=== PATIENT | female | born 1995 | race Caucasian/White ===

== ENCOUNTER 2017-06-29 21:47 | Emergency (ER) | payer SELFPAY ==
[2015-04-19 14:33] VITALS: Wt 59.0 kg
[~2017-06-29 21:47] MED LIST: ACE3 PO; ACE325 PO; ACET-2007 PO; ACET-2327 PO; AMO30L PO; AMOX-559 PO; ASP325 PO; AZI250 PO; Benzocaine 60 ML TP; DAR100 PO; DIPH-740 PO; DIPH-911 PO; DOCU240C67 PO; HYDR1TAB PO; HYOS0.3729 PO; IBU200 PO; IBUP-1618 PO; IBUP800T37 PO; KET10 PO; Lanolin TP; NIFE10CA38 PO; NORG1TAB5 PO; ONDA4TAB9 PO; ONDA4TAB97 PO; OXYC-865 PO; PNV1TABL77 PO; PRED20TA6 PO; PROM-110 PO; SERT-173 PO; TRAM-420 PO; TUCKS TP; [UNRECOGNIZED DRUG - CODE] PO
[2017-06-29 21:51] VITALS: BP 116/82
[2017-06-29] MEDS ORDERED: CYAN500T54 PO (21:58)
[2017-06-29] MEDS ORDERED: MULT1CAP59 PO (21:58)
[2017-06-29] MEDS ORDERED: IRON150C19 PO (21:58)
--- NOTE | 2017-06-29 21:58 | ER Report ---
History and Physical Time Seen By MD: 21:58 Hx. of Stated Complaint: PATIENT STATES SHE IS HAVING PAIN IN RIGHT FLANK, PATIENT ALSO STATES SHE FEELS LIKE SHE IS GETTING A URIARY TRACT INFECTION. PATIET STATES URGENCY OF URINATION, AND PATIENT STATES SHE HAS NAUSEA WITH THE PAIN. HPI/ROS CHIEF COMPLAINT: Right-sided flank pain HISTORY OF PRESENT ILLNESS: 22-year-old female with complaint of right-sided flank pain with dysuria for 24 hours. Similar to prior urinary tract infections. She denies fevers or chills she denies nausea vomiting or diarrhea. Patient reports allergy to amoxicillin which she gets hives. She denies any vaginal discharge or bleeding. She denies . REVIEW OF SYSTEMS: Respiratory: No cough, no dyspnea. Cardiovascular: No chest pain, no palpitations. Gastrointestinal: No vomiting, suprapubic and right-sided flank pain Musculoskeletal: No back pain. Allergies: Coded Allergies: amoxicillin (Verified Allergy, Severe, HEAD TO TOW HIVES, 06/29/17) Home Meds Active Scripts Phenazopyridine Hcl (PHENAZOPYRIDINE HCL) 200 Mg Tablet, 200 MG PO TID for PAIN , #6 TAB 0 Refills Prov:YOLANDA REY MD 06/29/17 Oxycodone Hcl/Acetaminophen (PERCOCET 5-325 MG TABLET) 1 Each Tablet, 1 EACH PO Q4H for PAIN, #6 TAB 0 Refills Prov:YOLANDA REY MD 06/29/17 Sulfamethoxazole/Trimet 800-160 Mg Tab (BACTRIM DS TABLET) 1 Each Tablet, 1 TAB PO Q12H, #6 MG 0 Refills TAKE ONE TABLET BY MOUTH EVERY TWELVE HOURS Prov:YOLANDA REY MD 06/29/17 Reported Medications Cyanocobalamin (Vitamin B-12) (B-12) 500 Mcg Tablet, 500 MCG PO QDAY 06/29/17 Iron Polysaccharides Complex (POLYSACCHARIDE IRON 150) 150 Mg Capsule, 150 MG PO QDAY, CAPSULE 06/29/17 Multivitamin (MULTIVITAMINS) 1 Each Capsule, 1 EACH PO QDAY, CAPSULE 06/29/17 Discontinued Reported Medications Amoxicillin/Pot Clav 875-125 Mg Tab (AUGMENTIN 875-125 TABLET) 1 Each Tablet, 1 TAB PO Q12H, TAB 03/03/16 Discontinued Scripts Prednisone (PREDNISONE) 20 Mg Tablet, 20 MG PO TID, #15 Prov:CATHERINE SOTO DO 03/03/16 Diphenhydramine Hcl (BENADRYL) 25 Mg Capsule, 25 MG PO Q6-8H, #20 CAPSULE TAKE 1 CAPSULE BY MOUTH EVERY 6 TO 8 HOURS Prov:CATHERINE SOTO DO 03/03/16 Past Medical/Surgical History Noncontributory Hx Smoking: No Smoking Status: Never Smoker Exposure to Second Hand Smoke?: Yes Hx Substance Use Disorder: No Hx Alcohol Use: No Constitutional Vital Sign - Last 24 Hours 06/29/17 21:51 Temp 98.3 Pulse 90 Resp 16 B/P (MAP) 116/82 Pulse Ox 94 O2 Delivery Room Air Physical Exam General Appearance: The patient is alert, has no immediate need for airway protection and no current signs of toxicity. Eyes: Pupils equal and round no injection. Respiratory: Chest is non tender, lungs are clear to auscultation. Cardiac: regular rate and rhythm Gastrointestinal: Suprapubic abdominal pain, right-sided CVA tenderness Musculoskeletal: Neck: Neck is supple and non tender. Extremities have full range of motion and are non tender. Skin: No rashes or lesions. Medical Decision Making Data Points Laboratory Hematology Test 06/29/17 21:53 Urine Color Yellow Urine Clarity Cloudy Urine pH 5.0 pH (4.8-9.5) Urine Specific [place] 1.020 Urine Protein 100 mg/dL (NEGATIVE) Urine Glucose (UA) Negative mg/dL (NEGATIVE) Urine Ketones Trace mg/dL (NEGATIVE) Urine Blood Moderate (NEGATIVE) Urine Nitrite Negative (NEGATIVE) Urine Bilirubin Negative (NEGATIVE) Urine Urobilinogen Negative mg/dL (0.2-1.9) Urine Leukocyte Esterase Large (NEGATIVE) Urine RBC 291 /HPF (0-2/HPF) Urine WBC 845 /HPF (0-5/HPF) Urine WBC Clumps Many /HPF Urine Squamous Epithelial Cells Many /LPF (</=FEW) Urine Bacteria Moderate /HPF (NONE-FEW) Urine Mucus Few /HPF (NONE-FEW) Urine HCG, Qualitative Negative (NEGATIVE) Chemistry Test 06/29/17 21:53 Urine Color Yellow Urine Clarity Cloudy Urine pH 5.0 pH (4.8-9.5) Urine Specific [place] 1.020 Urine Protein 100 mg/dL (NEGATIVE) Urine Glucose (UA) Negative mg/dL (NEGATIVE) Urine Ketones Trace mg/dL (NEGATIVE) Urine Blood Moderate (NEGATIVE) Urine Nitrite Negative (NEGATIVE) Urine Bilirubin Negative (NEGATIVE) Urine Urobilinogen Negative mg/dL (0.2-1.9) Urine Leukocyte Esterase Large (NEGATIVE) Urine RBC 291 /HPF (0-2/HPF) Urine WBC 845 /HPF (0-5/HPF) Urine WBC Clumps Many /HPF Urine Squamous Epithelial Cells Many /LPF (</=FEW) Urine Bacteria Moderate /HPF (NONE-FEW) Urine Mucus Few /HPF (NONE-FEW) Urine HCG, Qualitative Negative (NEGATIVE) Urinalysis Test 06/29/17 21:53 Urine Color Yellow Urine Clarity Cloudy Urine pH 5.0 pH (4.8-9.5) Urine Specific [place] 1.020 Urine Protein 100 mg/dL (NEGATIVE) Urine Glucose (UA) Negative mg/dL (NEGATIVE) Urine Ketones Trace mg/dL (NEGATIVE) Urine Blood Moderate (NEGATIVE) Urine Nitrite Negative (NEGATIVE) Urine Bilirubin Negative (NEGATIVE) Urine Urobilinogen Negative mg/dL (0.2-1.9) Urine Leukocyte Esterase Large (NEGATIVE) Urine RBC 291 /HPF (0-2/HPF) Urine WBC 845 /HPF (0-5/HPF) Urine WBC Clumps Many /HPF Urine Squamous Epithelial Cells Many /LPF (</=FEW) Urine Bacteria Moderate /HPF (NONE-FEW) Urine Mucus Few /HPF (NONE-FEW) Urine HCG, Qualitative Negative (NEGATIVE) ED Course/Re-evaluation ED Course 06/29/2017 10:18:24 pm printed test negative urinalysis positive for large leuks moderate blood and moderate bacteria. Plan at this time will be to give the patient oral Bactrim double strength, Pyridium we'll sent home with take home pack for Bactrim, Pyridium and Lortab. Decision to Disposition Date: Jun 29, 2017 Decision to Disposition Time: 22:18 Depart Departure Latest Vital Signs Vital Signs Date Time Temp Pulse Resp B/P (MAP) Pulse Ox O2 Delivery O2 Flow Rate FiO2 06/29/17 21:51 98.3 90 16 116/82 94 Room Air Impression: Primary Impression: Urinary tract infection Condition: Improved Disposition: HOME OR SELF-CARE New Scripts Phenazopyridine Hcl (PHENAZOPYRIDINE HCL) 200 Mg Tablet 200 MG PO TID for PAIN, #6 TAB 0 Refills Prov: YOLANDA REY MD 06/29/17 Oxycodone Hcl/Acetaminophen (PERCOCET 5-325 MG TABLET) 1 Each Tablet 1 EACH PO Q4H for PAIN, #6 TAB 0 Refills Prov: YOLANDA REY MD 06/29/17 Sulfamethoxazole/Trimet 800-160 Mg Tab (BACTRIM DS TABLET) 1 Each Tablet 1 TAB PO Q12H, #6 MG 0 Refills TAKE ONE TABLET BY MOUTH EVERY TWELVE HOURS Prov: YOLANDA REY MD 06/29/17 Patient Instructions: Urinary Tract Infection in Women (ED) Problem Qualifiers Primary Impression: Urinary tract infection Urinary tract infection type: acute cystitis Hematuria presence: without hematuria Qualified Codes: N30.00 - Acute cystitis without hematuria YOLANDA REY MD Jun 29, 2017 21:58
[2017-06-29] MEDS ORDERED: ACET/HYDROC 5/325MG TH ER ONLY 2 TAB/BOTTLE PO ONE (22:15)
[2017-06-29] MEDS ORDERED: TRIMETH/SULFA DS 160-800MG TAB PO ONE (22:15)
[2017-06-29] MEDS ORDERED: PHENAZOPYRIDINE 200 MG TAB TH 2 TAB/BOTTLE PO ONE (22:15)
[2017-06-29] MEDS ORDERED: TRIMETHOPRIM/SULFA 160-800 TH 2 TAB/BOTTLE PO ONE (22:15)
[2017-06-29] MEDS ORDERED: SULF-198 PO (22:21)
[2017-06-29] MEDS ORDERED: LOR5/325 PO (22:21)
[2017-06-29] MEDS ORDERED: OXYC-865 PO (22:23)
[2017-06-29] MEDS ORDERED: PHEN200T32 PO (22:24)
== END 2017-06-29 22:38 | disposition home or self-care (01) ==
LOC: ER 22:38
DX: N30.00 Acute cystitis without hematuria (principal)
CPT/HCPCS: 81001; 81025; 87088; 99283

== ENCOUNTER 2017-07-04 13:10 | Emergency (ER) | payer SELFPAY ==
[2015-04-19 14:33] VITALS: Wt 59.0 kg
[~2017-07-04 13:10] MED LIST changes: +CYAN500T54 PO; +IRON150C19 PO; +LOR5/325 PO; +MULT1CAP59 PO; +PHEN200T32 PO; +SULF-198 PO
--- NOTE | 2017-07-04 13:14 | ER Report ---
History and Physical Time Seen By MD: 13:14 HPI/ROS CHIEF COMPLAINT: persistant dysuria HISTORY OF PRESENT ILLNESS: Patient is a 22-year-old female who was seen approximate 5 days ago for urinary tract infection symptoms. Was treated for UTI states that symptoms are persisting. She denies any new symptoms. She denies fevers or chills. She denies any flank pain. She denies vaginal discharge or bleeding. REVIEW OF SYSTEMS: Constitutional: No fever, no chills. Eyes: No discharge. ENT: No sore throat. Cardiovascular: No chest pain, no palpitations. Respiratory: No cough, no shortness of breath. Gastrointestinal: suprapubic abdominal pain Genitourinary: No hematuria. Dysuria Musculoskeletal: No back pain. Skin: No rashes. Neurological: No headache. Allergies: Coded Allergies: amoxicillin (Verified Allergy, Severe, HEAD TO TOW HIVES, 06/29/17) Home Meds Active Scripts Doxycycline Hyclate (DOXYCYCLINE HYCLATE) 100 Mg Tablet, 100 MG PO BID for 14 Days, #28 TAB 0 Refills Prov:YOLANDA REY MD 07/04/17 Phenazopyridine Hcl (PHENAZOPYRIDINE HCL) 200 Mg Tablet, 200 MG PO TID for PAIN , #6 TAB 0 Refills Prov:YOLANDA REY MD 06/29/17 Oxycodone Hcl/Acetaminophen (PERCOCET 5-325 MG TABLET) 1 Each Tablet, 1 EACH PO Q4H for PAIN, #6 TAB 0 Refills Prov:YOLANDA REY MD 06/29/17 Sulfamethoxazole/Trimet 800-160 Mg Tab (BACTRIM DS TABLET) 1 Each Tablet, 1 TAB PO Q12H, #6 MG 0 Refills TAKE ONE TABLET BY MOUTH EVERY TWELVE HOURS Prov:YOLANDA REY MD 06/29/17 Reported Medications Cyanocobalamin (Vitamin B-12) (B-12) 500 Mcg Tablet, 500 MCG PO QDAY 06/29/17 Iron Polysaccharides Complex (POLYSACCHARIDE IRON 150) 150 Mg Capsule, 150 MG PO QDAY, CAPSULE 06/29/17 Multivitamin (MULTIVITAMINS) 1 Each Capsule, 1 EACH PO QDAY, CAPSULE 06/29/17 Discontinued Reported Medications Amoxicillin/Pot Clav 875-125 Mg Tab (AUGMENTIN 875-125 TABLET) 1 Each Tablet, 1 TAB PO Q12H, TAB 12/5/16 Discontinued Scripts Prednisone (PREDNISONE) 20 Mg Tablet, 20 MG PO TID, #15 Prov:CATHERINE SOTO DO 03/03/16 Diphenhydramine Hcl (BENADRYL) 25 Mg Capsule, 25 MG PO Q6-8H, #20 CAPSULE TAKE 1 CAPSULE BY MOUTH EVERY 6 TO 8 HOURS Prov:CATHERINE SOTO DO 03/03/16 Past Medical/Surgical History Past medical history significant for urinary tract infections Hx Smoking: No Smoking Status: Never Smoker Exposure to Second Hand Smoke?: Yes Hx Substance Use Disorder: No Hx Alcohol Use: No Constitutional Vital Sign - Last 24 Hours 07/04/17 07/04/17 07/04/17 07/04/17 13:24 13:25 13:26 13:55 Temp 98.6 Pulse 92 76 Resp 14 B/P (MAP) 120/78 (92) 120/78 Pulse Ox 94 93 96 O2 Delivery Room Air 07/04/17 14:59 B/P (MAP) 109/70 (83) Physical Exam General Appearance: The patient is alert, has no immediate need for airway protection and no signs of toxicity. Eyes: Pupils equal and round no pallor or injection. ENT, Mouth: Mucous membranes are moist. Respiratory: There are no retractions, lungs are clear to auscultation. Cardiovascular: Regular rate and rhythm. Gastrointestinal: Abdomen is soft and non tender, no masses, bowel sounds normal. Skin: Warm and dry, no rashes. Musculoskeletal: Neck is supple non tender. Extremities are nontender, nonswollen and have full range of motion. Medical Decision Making Data Points Result Diagram: 07/04/17 1345 07/04/17 1345 Laboratory Hematology Test 07/04/17 13:24 07/04/17 13:45 07/04/17 14:09 Urine Color Straw Urine Clarity Clear Urine pH 6.0 pH (4.8-9.5) Urine Specific [place] 1.003 Urine Protein Negative mg/dL (NEGATIVE) Urine Glucose (UA) Negative mg/dL (NEGATIVE) Urine Ketones Negative mg/dL (NEGATIVE) Urine Blood Negative (NEGATIVE) Urine Nitrite Negative (NEGATIVE) Urine Bilirubin Negative (NEGATIVE) Urine Urobilinogen Negative mg/dL (0.2-1.9) Urine Leukocyte Esterase Negative (NEGATIVE) Urine RBC <1 /HPF (0-2/HPF) Urine WBC 2 /HPF (0-5/HPF) Urine Squamous Epithelial Cells Few /LPF (NONE-FEW) Urine Bacteria Negative /HPF (NONE-FEW) Urine Mucus None /HPF (NONE-FEW) Urine HCG, Qualitative Negative (NEGATIVE) Red Blood Count 4.70 M/uL (4.17-5.56) Mean Corpuscular Volume 92.3 fL (80.0-96.0) Mean Corpuscular Hemoglobin 32.9 pg (26.0-33.0) Mean Corpuscular Hemoglobin Concent 35.7 g/dL (32.0-36.0) Red Cell Distribution Width 12.6 % (11.5-14.5) Mean Platelet Volume 7.6 fL (7.2-11.1) Neutrophils (%) (Auto) 70.7 % (39.4-72.5) Lymphocytes (%) (Auto) 23.2 % (17.6-49.6) Monocytes (%) (Auto) 5.2 % (4.1-12.4) Eosinophils (%) (Auto) 0.2 % (0.4-6.7) Basophils (%) (Auto) 0.7 % (0.3-1.4) Nucleated RBC Relative Count (auto) 0.0 /100WBC Neutrophils # (Auto) 5.6 K/uL (2.0-7.4) Lymphocytes # (Auto) 1.8 K/uL (1.3-3.6) Monocytes # (Auto) 0.4 K/uL (0.3-1.0) Eosinophils # (Auto) 0.0 K/uL (0.0-0.5) Basophils # (Auto) 0.1 K/uL (0.0-0.1) Nucleated RBC Absolute Count (auto) 0.00 K/uL Sodium Level 140 mmol/L (137-145) Potassium Level 3.8 mmol/L (3.5-5.0) Chloride Level 99 mmol/L (98-107) Carbon Dioxide Level 26 mmol/L (22-31) Blood Urea Nitrogen 8 mg/dl (7-18) Creatinine 1.00 mg/dl (0.52-1.04) Glomerular Filtration Rate Calc > 60.0 Random Glucose 88 mg/dl (75-110) Calcium Level 9.5 mg/dl (8.4-10.2) Chemistry Test 07/04/17 13:24 07/04/17 13:45 07/04/17 14:09 Urine Color Straw Urine Clarity Clear Urine pH 6.0 pH (4.8-9.5) Urine Specific [place] 1.003 Urine Protein Negative mg/dL (NEGATIVE) Urine Glucose (UA) Negative mg/dL (NEGATIVE) Urine Ketones Negative mg/dL (NEGATIVE) Urine Blood Negative (NEGATIVE) Urine Nitrite Negative (NEGATIVE) Urine Bilirubin Negative (NEGATIVE) Urine Urobilinogen Negative mg/dL (0.2-1.9) Urine Leukocyte Esterase Negative (NEGATIVE) Urine RBC <1 /HPF (0-2/HPF) Urine WBC 2 /HPF (0-5/HPF) Urine Squamous Epithelial Cells Few /LPF (NONE-FEW) Urine Bacteria Negative /HPF (NONE-FEW) Urine Mucus None /HPF (NONE-FEW) Urine HCG, Qualitative Negative (NEGATIVE) White Blood Count 7.9 k/uL (4.5-11.0) Red Blood Count 4.70 M/uL (4.17-5.56) Hemoglobin 15.5 g/dL (12.0-16.0) Hematocrit 43.4 % (34.0-47.0) Mean Corpuscular Volume 92.3 fL (80.0-96.0) Mean Corpuscular Hemoglobin 32.9 pg (26.0-33.0) Mean Corpuscular Hemoglobin Concent 35.7 g/dL (32.0-36.0) Red Cell Distribution Width 12.6 % (11.5-14.5) Platelet Count 221 K/uL (150-450) Mean Platelet Volume 7.6 fL (7.2-11.1) Neutrophils (%) (Auto) 70.7 % (39.4-72.5) Lymphocytes (%) (Auto) 23.2 % (17.6-49.6) Monocytes (%) (Auto) 5.2 % (4.1-12.4) Eosinophils (%) (Auto) 0.2 % (0.4-6.7) Basophils (%) (Auto) 0.7 % (0.3-1.4) Nucleated RBC Relative Count (auto) 0.0 /100WBC Neutrophils # (Auto) 5.6 K/uL (2.0-7.4) Lymphocytes # (Auto) 1.8 K/uL (1.3-3.6) Monocytes # (Auto) 0.4 K/uL (0.3-1.0) Eosinophils # (Auto) 0.0 K/uL (0.0-0.5) Basophils # (Auto) 0.1 K/uL (0.0-0.1) Nucleated RBC Absolute Count (auto) 0.00 K/uL Glomerular Filtration Rate Calc > 60.0 Calcium Level 9.5 mg/dl (8.4-10.2) Urinalysis Test 07/04/17 13:24 Urine Color Straw Urine Clarity Clear Urine pH 6.0 pH (4.8-9.5) Urine Specific [place] 1.003 Urine Protein Negative mg/dL (NEGATIVE) Urine Glucose (UA) Negative mg/dL (NEGATIVE) Urine Ketones Negative mg/dL (NEGATIVE) Urine Blood Negative (NEGATIVE) Urine Nitrite Negative (NEGATIVE) Urine Bilirubin Negative (NEGATIVE) Urine Urobilinogen Negative mg/dL (0.2-1.9) Urine Leukocyte Esterase Negative (NEGATIVE) Urine RBC <1 /HPF (0-2/HPF) Urine WBC 2 /HPF (0-5/HPF) Urine Squamous Epithelial Cells Few /LPF (NONE-FEW) Urine Bacteria Negative /HPF (NONE-FEW) Urine Mucus None /HPF (NONE-FEW) Urine HCG, Qualitative Negative (NEGATIVE) Microbiology Microbiology Date/Time Source Procedure Growth Status 07/04/17 13:24 Straight Cath Urine Urine Culture - Preliminary NO GROWTH AFTER 1 DAY, REINCUBATED Resulted ED Course/Re-evaluation ED Course 07/04/2017 2:11:54 pm bimanual exam suggestive of cervicitis. We'll give [address] the patient on doxycycline. We'll send swab for GC chlamydia culture. Decision to Disposition Date: Jul 04, 2017 Decision to Disposition Time: 15:00 Depart Departure Latest Vital Signs Vital Signs Date Time Temp Pulse Resp B/P (MAP) Pulse Ox O2 Delivery O2 Flow Rate FiO2 07/04/17 14:59 109/70 (83) 07/04/17 13:55 76 96 07/04/17 13:26 98.6 14 Room Air Impression: Primary Impression: Cervicitis Condition: Improved New Scripts Doxycycline Hyclate (DOXYCYCLINE HYCLATE) 100 Mg Tablet 100 MG PO BID for 14 Days, #28 TAB 0 Refills Prov: YOLANDA REY MD 07/04/17 Patient Instructions: Cervicitis (ED) YOLANDA REY MD Jul 04, 2017 13:14
[2017-07-04] MEDS ORDERED: KETOROLAC 15 MG/ML VIAL IVP ONE (13:50)
[2017-07-04 13:58] LABS: PLATELET COUNT, AUTOMATED 221 K/uL (150-450)
[2017-07-04] MEDS ORDERED: DOXY-179 PO (14:15)
[2017-07-04] MEDS ORDERED: cefTRIAXone 250 MG VIAL IVP ONE (14:20)
[2017-07-04 14:59] VITALS: BP 109/70
== END 2017-07-04 15:07 | disposition home or self-care (01) ==
LOC: ER 13:20
DX: N72 Inflammatory disease of cervix uteri (principal)
CPT/HCPCS: 81001; 81025; 85025; 87088; 87491; 87591; 96374; 96375; 99283; A4353; J0696; J1885; 82310; 82374; 82435; 82565; 82947; 84132; 84295; 84520

== ENCOUNTER 2017-09-26 16:38 | Emergency (ER) | payer MEDICAID ==
[2015-04-19 14:33] VITALS: Wt 63.0 kg
[~2017-09-26 16:38] MED LIST changes: +DOXY-179 PO
[2017-09-26] MEDS ORDERED: KETOROLAC 15 MG/ML VIAL IVP ONE (17:05)
--- NOTE | 2017-09-26 17:23 | ER Report ---
History and Physical Time Seen By MD: 16:46 Hx. of Stated Complaint: pelvic pain. feels like uterus is being pulled on HPI/ROS CHIEF COMPLAINT: pelvic pain HISTORY OF PRESENT ILLNESS: Pt here for evaluation of pelvic pain. Pt states pain has started for about one week. Pain is pulling feeling in her uterus with sharp pains on r side of her uterus which is worse with walking and movement. Pt has noticed a discharge. Pt has an iud and was concerned it could have moved. Pt was tested for stds earlier this month and was normal. pt does not believe she is . Pt w just finished bactrim for an lymph node in her neck. Pt does c/o of nausea. no vomiting. no chnage in bm. no dysuria REVIEW OF SYSTEMS: Constitutional: No fever, no chills. Eyes: No discharge. ENT: No sore throat. Cardiovascular: No chest pain, no palpitations. Respiratory: No cough, no shortness of breath. Gastrointestinal: + abdominal pain, no vomiting, + nausea Genitourinary: No hematuria. Musculoskeletal: No back pain. Skin: No rashes. Neurological: No headache. Allergies: Coded Allergies: amoxicillin (Verified Allergy, Severe, HEAD TO TOW HIVES, 09/26/17) Home Meds Active Scripts Tramadol Hcl (TRAMADOL HCL) 50 Mg Tablet, 50 MG PO Q6H Y for PAIN, #12 TAB 0 Refills Prov:NIRMAL SAAVEDRA DO 09/26/17 Doxycycline Hyclate (DOXYCYCLINE HYCLATE) 100 Mg Capsule, 100 MG PO BID for 14 Days, #28 CAPSULE Prov:NIRMAL SAAVEDRA DO 09/26/17 Discontinued Reported Medications Cyanocobalamin (Vitamin B-12) (B-12) 500 Mcg Tablet, 500 MCG PO QDAY 06/29/17 Iron Polysaccharides Complex (POLYSACCHARIDE IRON 150) 150 Mg Capsule, 150 MG PO QDAY, CAPSULE 06/29/17 Multivitamin (MULTIVITAMINS) 1 Each Capsule, 1 EACH PO QDAY, CAPSULE 06/29/17 Discontinued Scripts Sulfamethoxazole/Trimet 800-160 Mg Tab (BACTRIM DS TABLET) 1 Each Tablet, 1 TAB PO Q12H for 7 Days, #14 TAB 0 Refills Prov:HEIDY RAJPUT DO 09/15/17 Doxycycline Hyclate (DOXYCYCLINE HYCLATE) 100 Mg Tablet, 100 MG PO BID for 14 Days, #28 TAB 0 Refills Prov:YOLANDA REY MD 07/04/17 Phenazopyridine Hcl (PHENAZOPYRIDINE HCL) 200 Mg Tablet, 200 MG PO TID for PAIN , #6 TAB 0 Refills Prov:YOLANDA REY MD 06/29/17 Oxycodone Hcl/Acetaminophen (PERCOCET 5-325 MG TABLET) 1 Each Tablet, 1 EACH PO Q4H for PAIN, #6 TAB 0 Refills Prov:YOLANDA REY MD 06/29/17 Sulfamethoxazole/Trimet 800-160 Mg Tab (BACTRIM DS TABLET) 1 Each Tablet, 1 TAB PO Q12H, #6 MG 0 Refills TAKE ONE TABLET BY MOUTH EVERY TWELVE HOURS Prov:YOLANDA REY MD 06/29/17 Past Medical/Surgical History pmhx: kidney infection Pshx: gini Reviewed Nurses Notes: Yes Hx Smoking: No Smoking Status: Former Smoker (vapor) Exposure to Second Hand Smoke?: Yes Hx Substance Use Disorder: No Hx Alcohol Use: No Constitutional Vital Sign - Last 24 Hours 09/26/17 09/26/17 16:50 19:19 Temp 98.9 Pulse 96 85 Resp 14 16 B/P (MAP) 144/79 138/72 (94) Pulse Ox 99 92 O2 Delivery Room Air Room Air Physical Exam General Appearance: The patient is alert, has no immediate need for airway protection and no signs of toxicity. Eyes: Pupils equal and round no pallor or injection, EOMI ENT: no pharyngeal erythema or exudates, Mucous membranes are moist Respiratory: There are no retractions, lungs are clear to auscultation. Cardiovascular: Regular rate and rhythm. pulses are equal and symmetrical Gastrointestinal: Abdomen is soft mild superpubic tender, no masses, bowel sounds normal, no guarding, no rigidity or rebound Neurological: Cranial nerves II-XII grossly intact, no sensory or motor loss Pelvis: + yellow d/c; +CMT; no adnexal tenderness; iud string is in os Skin: Warm and dry, no rashes. Musculoskeletal: Neck is supple non tender, no vertebral tenderness Extremities are nontender, non swollen and have full range of motion. DIFFERENTIAL DIAGNOSIS: After history and physical exam differential diagnosis was considered for cervicitis, ovarian torsion, tubal , ovarian cyst, uti, appendicitis Medical Decision Making Data Points Result Diagram: 09/26/17 1728 09/26/17 1728 Laboratory Hematology Test 09/26/17 17:00 09/26/17 17:06 09/26/17 17:28 Urine Color Yellow Urine Clarity Clear Urine pH 5.0 pH (4.8-9.5) Urine Specific [place] 1.023 Urine Protein Negative mg/dL (NEGATIVE) Urine Glucose (UA) Negative mg/dL (NEGATIVE) Urine Ketones Negative mg/dL (NEGATIVE) Urine Blood Negative (NEGATIVE) Urine Nitrite Negative (NEGATIVE) Urine Bilirubin Negative (NEGATIVE) Urine Urobilinogen 2.0 mg/dL (0.2-1.9) Urine Leukocyte Esterase Negative (NEGATIVE) Urine RBC 1 /HPF (0-2/HPF) Urine WBC 4 /HPF (0-5/HPF) Urine Squamous Epithelial Cells None /LPF (</=FEW) Urine Bacteria Negative /HPF (NONE-FEW) Urine Mucus Few /HPF (NONE-FEW) Urine HCG, Qualitative Negative (NEGATIVE) Red Blood Count 4.43 M/uL (4.17-5.56) Mean Corpuscular Volume 93.9 fL (80.0-96.0) Mean Corpuscular Hemoglobin 33.3 pg (26.0-33.0) Mean Corpuscular Hemoglobin Concent 35.4 g/dL (32.0-36.0) Red Cell Distribution Width 12.7 % (11.5-14.5) Mean Platelet Volume 7.3 fL (7.2-11.1) Neutrophils (%) (Auto) 92.1 % (39.4-72.5) Lymphocytes (%) (Auto) 4.1 % (17.6-49.6) Monocytes (%) (Auto) 2.3 % (4.1-12.4) Eosinophils (%) (Auto) 0.6 % (0.4-6.7) Basophils (%) (Auto) 0.9 % (0.3-1.4) Nucleated RBC Relative Count (auto) 0.0 /100WBC Neutrophils # (Auto) 15.3 K/uL (2.0-7.4) Lymphocytes # (Auto) 0.7 K/uL (1.3-3.6) Monocytes # (Auto) 0.4 K/uL (0.3-1.0) Eosinophils # (Auto) 0.1 K/uL (0.0-0.5) Basophils # (Auto) 0.2 K/uL (0.0-0.1) Nucleated RBC Absolute Count (auto) 0.01 K/uL Peripheral Blood Smear Yes Y/N Sodium Level 141 mmol/L (137-145) Potassium Level 3.3 mmol/L (3.5-5.0) Chloride Level 101 mmol/L (98-107) Carbon Dioxide Level 27 mmol/L (22-31) Blood Urea Nitrogen 5 mg/dl (7-18) Creatinine 0.90 mg/dl (0.52-1.04) Glomerular Filtration Rate Calc > 60.0 Random Glucose 94 mg/dl (75-110) Calcium Level 8.7 mg/dl (8.4-10.2) Total Bilirubin 1.0 mg/dl (0.2-1.3) Aspartate Amino Transf (AST/SGOT) 20 U/L (0-35) Alanine Aminotransferase (ALT/SGPT) 22 U/L (0-56) Alkaline Phosphatase 68 U/L (0-126) Total Protein 7.4 g/dl (6.3-8.2) Albumin 4.2 g/dl (3.5-5.0) Chemistry Test 09/26/17 17:00 09/26/17 17:06 09/26/17 17:28 Urine Color Yellow Urine Clarity Clear Urine pH 5.0 pH (4.8-9.5) Urine Specific [place] 1.023 Urine Protein Negative mg/dL (NEGATIVE) Urine Glucose (UA) Negative mg/dL (NEGATIVE) Urine Ketones Negative mg/dL (NEGATIVE) Urine Blood Negative (NEGATIVE) Urine Nitrite Negative (NEGATIVE) Urine Bilirubin Negative (NEGATIVE) Urine Urobilinogen 2.0 mg/dL (0.2-1.9) Urine Leukocyte Esterase Negative (NEGATIVE) Urine RBC 1 /HPF (0-2/HPF) Urine WBC 4 /HPF (0-5/HPF) Urine Squamous Epithelial Cells None /LPF (</=FEW) Urine Bacteria Negative /HPF (NONE-FEW) Urine Mucus Few /HPF (NONE-FEW) Urine HCG, Qualitative Negative (NEGATIVE) White Blood Count 16.6 k/uL (4.5-11.0) Red Blood Count 4.43 M/uL (4.17-5.56) Hemoglobin 14.7 g/dL (12.0-16.0) Hematocrit 41.6 % (34.0-47.0) Mean Corpuscular Volume 93.9 fL (80.0-96.0) Mean Corpuscular Hemoglobin 33.3 pg (26.0-33.0) Mean Corpuscular Hemoglobin Concent 35.4 g/dL (32.0-36.0) Red Cell Distribution Width 12.7 % (11.5-14.5) Platelet Count 204 K/uL (150-450) Mean Platelet Volume 7.3 fL (7.2-11.1) Neutrophils (%) (Auto) 92.1 % (39.4-72.5) Lymphocytes (%) (Auto) 4.1 % (17.6-49.6) Monocytes (%) (Auto) 2.3 % (4.1-12.4) Eosinophils (%) (Auto) 0.6 % (0.4-6.7) Basophils (%) (Auto) 0.9 % (0.3-1.4) Nucleated RBC Relative Count (auto) 0.0 /100WBC Neutrophils # (Auto) 15.3 K/uL (2.0-7.4) Lymphocytes # (Auto) 0.7 K/uL (1.3-3.6) Monocytes # (Auto) 0.4 K/uL (0.3-1.0) Eosinophils # (Auto) 0.1 K/uL (0.0-0.5) Basophils # (Auto) 0.2 K/uL (0.0-0.1) Nucleated RBC Absolute Count (auto) 0.01 K/uL Peripheral Blood Smear Yes Y/N Glomerular Filtration Rate Calc > 60.0 Calcium Level 8.7 mg/dl (8.4-10.2) Total Bilirubin 1.0 mg/dl (0.2-1.3) Aspartate Amino Transf (AST/SGOT) 20 U/L (0-35) Alanine Aminotransferase (ALT/SGPT) 22 U/L (0-56) Alkaline Phosphatase 68 U/L (0-126) Total Protein 7.4 g/dl (6.3-8.2) Albumin 4.2 g/dl (3.5-5.0) Urinalysis Test 09/26/17 17:00 Urine Color Yellow Urine Clarity Clear Urine pH 5.0 pH (4.8-9.5) Urine Specific [place] 1.023 Urine Protein Negative mg/dL (NEGATIVE) Urine Glucose (UA) Negative mg/dL (NEGATIVE) Urine Ketones Negative mg/dL (NEGATIVE) Urine Blood Negative (NEGATIVE) Urine Nitrite Negative (NEGATIVE) Urine Bilirubin Negative (NEGATIVE) Urine Urobilinogen 2.0 mg/dL (0.2-1.9) Urine Leukocyte Esterase Negative (NEGATIVE) Urine RBC 1 /HPF (0-2/HPF) Urine WBC 4 /HPF (0-5/HPF) Urine Squamous Epithelial Cells None /LPF (</=FEW) Urine Bacteria Negative /HPF (NONE-FEW) Urine Mucus Few /HPF (NONE-FEW) Urine HCG, Qualitative Negative (NEGATIVE) Microbiology Microbiology Date/Time Source Procedure Growth Status 09/26/17 17:06 Cervical Wet Prep - Final Complete ED Course/Re-evaluation Clinical Indication for ER IV: IV Access ED Course Check labs and pelvic us 09/26/2017 6:16:06 pm wet prep was negative. still with pain. prelim on ultrasound is normal . will obtain CT. signed out to Dr. saavedra. Decision to Disposition Date: Sep 26, 2017 Decision to Disposition Time: 17:10 Depart Departure Latest Vital Signs Vital Signs Date Time Temp Pulse Resp B/P (MAP) Pulse Ox O2 Delivery O2 Flow Rate FiO2 09/26/17 19:19 85 16 138/72 (94) 92 Room Air 09/26/17 16:50 98.9 Impression: Primary Impression: Pelvic pain Condition: Improved Disposition: HOME OR SELF-CARE Referrals: HEIDY RAJPUT DO (PCP) New Scripts Tramadol Hcl (TRAMADOL HCL) 50 Mg Tablet 50 MG PO Q6H Y for PAIN, #12 TAB 0 Refills Prov: NIRMAL SAAVEDRA DO 09/26/17 Doxycycline Hyclate (DOXYCYCLINE HYCLATE) 100 Mg Capsule 100 MG PO BID for 14 Days, #28 CAPSULE Prov: NIRMAL SAAVEDRA DO 09/26/17 MISTY PAYAN DO Sep 26, 2017 17:23
[2017-09-26 17:36] LABS: PLATELET COUNT, AUTOMATED 204 K/uL (150-450)
--- NOTE | 2017-09-26 18:24 | RADIOLOGY IMAGING REPORT ---
FACILITY: [facility] PATIENT NAME: Joyce Smalls : 1995 MR: [id number] V: [id number] EXAM DATE: ORDERING PHYSICIAN: MISTY PAYAN TECHNOLOGIST: Location: [facility] - [place] Patient: Joyce Smalls : 1995 Visit/Account:[id number] Date of Sevice: 09/26/2017 Transvaginal pelvic ultrasound INDICATION: Right-sided pelvic pain. COMPARISON: CT scan pelvis on 10/03/2013. FINDINGS: Uterus measures 7.9 x 3.7 x 5.4 cm. The uterus is mildly heterogeneous. No focal abnormality. Double wall endometrial stripe measures 2.3 mm and homogeneous. No fluid or focal abnormality. IUD is in place and its usual position. However unsure if the left limb extends into the myometrium. There is no free fluid in the cul-de-sac. Urinary bladder is empty. Pelvic vessels appear to be increased vascularity.. Right ovary measures 3.0 x 2.3 x 1.5 cm and shows normal blood flow and contains several small follic les. Left ovary measures 2.8 x 2.5 x 1.4 cm and shows normal blood flow and contains several small follicl es. No adnexal masses. IMPRESSION: 1. Both ovaries are normal with normal blood flow. 2. IUD is in place and appears to be in good position. However the left limb may be extending into th e myometrium. 3. Increased vascularity in pelvis is nonspecific but could be secondary to pelvic congestion syndrom e. Report Dictated By: Edilberto Tanner at 09/26/2017 6:17 PM Report E-Signed By: Edilberto Tanner at 09/26/2017 6:20 PM WSN:[id number]
[2017-09-26] MEDS ORDERED: IOPAMIDOL 76% 100 ML INFUS BTL 100 ML ONE (18:29)
--- NOTE | 2017-09-26 19:01 | RADIOLOGY IMAGING REPORT ---
FACILITY: [facility] PATIENT NAME: Joyce Smalls : 1995 MR: [id number] V: [id number] EXAM DATE: ORDERING PHYSICIAN: MISTY PAYAN TECHNOLOG[place]: [place] [facility] [place] : 1995 Visit/Account:[id number] Date of Sevice: 09/26/2017 EXAMINATION: CT abdomen and pelvis with IV contrast HISTORY: Right lower quadrant and pelvic pain. TECHNIQUE: Axial CT images of the abdomen and pelvis were obtained with IV contrast, with coronal a nd sagittal 2D reconstructed images. One of the following dose optimization techniques was utilized in the performance of this exam: Autom ated exposure control; adjustment of the mA and/or kV according to the patient's size; or use of an i terative reconstruction technique. Specific details can be referenced in the facility's radiology C T exam operational policy. Contrast: 75 mL of IV Isovue-370. COMPARISON: Pelvic ultrasound 09/26/2017. CT abdomen/pelvis with contrast 10/03/2013. FINDINGS: Liver: Negative. Gallbladder and bile ducts: Cholecystectomy. No bile duct dilatation. Spleen: Negative. Pancreas: Negative. Adrenal glands: Negative. Kidneys: Negative. No hydronephrosis or urinary calculi. Bowel and peritoneum: The small bowel and colon are normal in caliber, without evidence of obstructi on or any focal inflammatory process. No bowel wall thickening. Normal appendix in the right pelvis. No free fluid or free intraperitoneal air. Pelvic structures: Unremarkable by CT. IUD in place along the central uterus. Lymph node assessment: Negative. Vessels: Negative. Musculoskeletal: Negative. Body wall: Negative. Lung bases: Negative. IMPRESSION: 1. No CT evidence of acute intra-abdominal pathology. 2. No source of right-sided pain is identified. 3. Cholecystectomy. 4. Normal appendix. 5. IUD in place along the central uterus. Report Dictated By: Giovany Gerber MD at 09/26/2017 6:52 PM Report E-Signed By: Giovany Gerber MD at 09/26/2017 6:57 PM WSN:[id number]
[2017-09-26] MEDS ORDERED: cefTRIAXone(*) 250 MG VIAL 250 MG in NS(*) 0.9% 50 ML BAG 50 ML IVPB ONE (19:05)
[2017-09-26] MEDS ORDERED: DOXYCYCLINE HYCL 100 MG TAB PO ONE (19:05)
[2017-09-26] MEDS ORDERED: DOXY-181 PO (19:09)
[2017-09-26] MEDS ORDERED: TRAM-420 PO (19:09)
--- NOTE | 2017-09-26 19:10 | ER Report ---
History and Physical Time Seen By MD: 19:06 Hx. of Stated Complaint: pelvic pain. feels like uterus is being pulled on Allergies: Coded Allergies: amoxicillin (Verified Allergy, Severe, HEAD TO TOW HIVES, 09/26/17) Home Meds Discontinued Reported Medications Cyanocobalamin (Vitamin B-12) (B-12) 500 Mcg Tablet, 500 MCG PO QDAY 06/29/17 Iron Polysaccharides Complex (POLYSACCHARIDE IRON 150) 150 Mg Capsule, 150 MG PO QDAY, CAPSULE 06/29/17 Multivitamin (MULTIVITAMINS) 1 Each Capsule, 1 EACH PO QDAY, CAPSULE 06/29/17 Discontinued Scripts Sulfamethoxazole/Trimet 800-160 Mg Tab (BACTRIM DS TABLET) 1 Each Tablet, 1 TAB PO Q12H for 7 Days, #14 TAB 0 Refills Prov:HEIDY RAJPUT DO 09/15/17 Doxycycline Hyclate (DOXYCYCLINE HYCLATE) 100 Mg Tablet, 100 MG PO BID for 14 Days, #28 TAB 0 Refills Prov:YOLANDA REY MD 07/04/17 Phenazopyridine Hcl (PHENAZOPYRIDINE HCL) 200 Mg Tablet, 200 MG PO TID for PAIN , #6 TAB 0 Refills Prov:YOLANDA REY MD 06/29/17 Oxycodone Hcl/Acetaminophen (PERCOCET 5-325 MG TABLET) 1 Each Tablet, 1 EACH PO Q4H for PAIN, #6 TAB 0 Refills Prov:YOLANDA REY MD 06/29/17 Sulfamethoxazole/Trimet 800-160 Mg Tab (BACTRIM DS TABLET) 1 Each Tablet, 1 TAB PO Q12H, #6 MG 0 Refills TAKE ONE TABLET BY MOUTH EVERY TWELVE HOURS Prov:YOLANDA REY MD 06/29/17 Hx Smoking: No Smoking Status: Former Smoker (vapor) Exposure to Second Hand Smoke?: Yes Hx Substance Use Disorder: No Hx Alcohol Use: No Constitutional Vital Signs Date Time Temp Pulse Resp B/P (MAP) Pulse Ox O2 Delivery O2 Flow Rate FiO2 09/26/17 16:50 98.9 96 14 144/79 99 Room Air Medical Decision Making Data Points Result Diagram: 09/26/17 1728 09/26/17 1728 Laboratory Hematology Test 09/26/17 17:00 09/26/17 17:06 09/26/17 17:28 Urine Color Yellow Urine Clarity Clear Urine pH 5.0 pH (4.8-9.5) Urine Specific [place] 1.023 Urine Protein Negative mg/dL (NEGATIVE) Urine Glucose (UA) Negative mg/dL (NEGATIVE) Urine Ketones Negative mg/dL (NEGATIVE) Urine Blood Negative (NEGATIVE) Urine Nitrite Negative (NEGATIVE) Urine Bilirubin Negative (NEGATIVE) Urine Urobilinogen 2.0 mg/dL (0.2-1.9) Urine Leukocyte Esterase Negative (NEGATIVE) Urine RBC 1 /HPF (0-2/HPF) Urine WBC 4 /HPF (0-5/HPF) Urine Squamous Epithelial Cells None /LPF (</=FEW) Urine Bacteria Negative /HPF (NONE-FEW) Urine Mucus Few /HPF (NONE-FEW) Urine HCG, Qualitative Negative (NEGATIVE) Red Blood Count 4.43 M/uL (4.17-5.56) Mean Corpuscular Volume 93.9 fL (80.0-96.0) Mean Corpuscular Hemoglobin 33.3 pg (26.0-33.0) Mean Corpuscular Hemoglobin Concent 35.4 g/dL (32.0-36.0) Red Cell Distribution Width 12.7 % (11.5-14.5) Mean Platelet Volume 7.3 fL (7.2-11.1) Neutrophils (%) (Auto) 92.1 % (39.4-72.5) Lymphocytes (%) (Auto) 4.1 % (17.6-49.6) Monocytes (%) (Auto) 2.3 % (4.1-12.4) Eosinophils (%) (Auto) 0.6 % (0.4-6.7) Basophils (%) (Auto) 0.9 % (0.3-1.4) Nucleated RBC Relative Count (auto) 0.0 /100WBC Neutrophils # (Auto) 15.3 K/uL (2.0-7.4) Lymphocytes # (Auto) 0.7 K/uL (1.3-3.6) Monocytes # (Auto) 0.4 K/uL (0.3-1.0) Eosinophils # (Auto) 0.1 K/uL (0.0-0.5) Basophils # (Auto) 0.2 K/uL (0.0-0.1) Nucleated RBC Absolute Count (auto) 0.01 K/uL Peripheral Blood Smear Yes Y/N Sodium Level 141 mmol/L (137-145) Potassium Level 3.3 mmol/L (3.5-5.0) Chloride Level 101 mmol/L (98-107) Carbon Dioxide Level 27 mmol/L (22-31) Blood Urea Nitrogen 5 mg/dl (7-18) Creatinine 0.90 mg/dl (0.52-1.04) Glomerular Filtration Rate Calc > 60.0 Random Glucose 94 mg/dl (75-110) Calcium Level 8.7 mg/dl (8.4-10.2) Total Bilirubin 1.0 mg/dl (0.2-1.3) Aspartate Amino Transf (AST/SGOT) 20 U/L (0-35) Alanine Aminotransferase (ALT/SGPT) 22 U/L (0-56) Alkaline Phosphatase 68 U/L (0-126) Total Protein 7.4 g/dl (6.3-8.2) Albumin 4.2 g/dl (3.5-5.0) Chemistry Test 09/26/17 17:00 09/26/17 17:06 09/26/17 17:28 Urine Color Yellow Urine Clarity Clear Urine pH 5.0 pH (4.8-9.5) Urine Specific [place] 1.023 Urine Protein Negative mg/dL (NEGATIVE) Urine Glucose (UA) Negative mg/dL (NEGATIVE) Urine Ketones Negative mg/dL (NEGATIVE) Urine Blood Negative (NEGATIVE) Urine Nitrite Negative (NEGATIVE) Urine Bilirubin Negative (NEGATIVE) Urine Urobilinogen 2.0 mg/dL (0.2-1.9) Urine Leukocyte Esterase Negative (NEGATIVE) Urine RBC 1 /HPF (0-2/HPF) Urine WBC 4 /HPF (0-5/HPF) Urine Squamous Epithelial Cells None /LPF (</=FEW) Urine Bacteria Negative /HPF (NONE-FEW) Urine Mucus Few /HPF (NONE-FEW) Urine HCG, Qualitative Negative (NEGATIVE) White Blood Count 16.6 k/uL (4.5-11.0) Red Blood Count 4.43 M/uL (4.17-5.56) Hemoglobin 14.7 g/dL (12.0-16.0) Hematocrit 41.6 % (34.0-47.0) Mean Corpuscular Volume 93.9 fL (80.0-96.0) Mean Corpuscular Hemoglobin 33.3 pg (26.0-33.0) Mean Corpuscular Hemoglobin Concent 35.4 g/dL (32.0-36.0) Red Cell Distribution Width 12.7 % (11.5-14.5) Platelet Count 204 K/uL (150-450) Mean Platelet Volume 7.3 fL (7.2-11.1) Neutrophils (%) (Auto) 92.1 % (39.4-72.5) Lymphocytes (%) (Auto) 4.1 % (17.6-49.6) Monocytes (%) (Auto) 2.3 % (4.1-12.4) Eosinophils (%) (Auto) 0.6 % (0.4-6.7) Basophils (%) (Auto) 0.9 % (0.3-1.4) Nucleated RBC Relative Count (auto) 0.0 /100WBC Neutrophils # (Auto) 15.3 K/uL (2.0-7.4) Lymphocytes # (Auto) 0.7 K/uL (1.3-3.6) Monocytes # (Auto) 0.4 K/uL (0.3-1.0) Eosinophils # (Auto) 0.1 K/uL (0.0-0.5) Basophils # (Auto) 0.2 K/uL (0.0-0.1) Nucleated RBC Absolute Count (auto) 0.01 K/uL Peripheral Blood Smear Yes Y/N Glomerular Filtration Rate Calc > 60.0 Calcium Level 8.7 mg/dl (8.4-10.2) Total Bilirubin 1.0 mg/dl (0.2-1.3) Aspartate Amino Transf (AST/SGOT) 20 U/L (0-35) Alanine Aminotransferase (ALT/SGPT) 22 U/L (0-56) Alkaline Phosphatase 68 U/L (0-126) Total Protein 7.4 g/dl (6.3-8.2) Albumin 4.2 g/dl (3.5-5.0) Urinalysis Test 09/26/17 17:00 Urine Color Yellow Urine Clarity Clear Urine pH 5.0 pH (4.8-9.5) Urine Specific [place] 1.023 Urine Protein Negative mg/dL (NEGATIVE) Urine Glucose (UA) Negative mg/dL (NEGATIVE) Urine Ketones Negative mg/dL (NEGATIVE) Urine Blood Negative (NEGATIVE) Urine Nitrite Negative (NEGATIVE) Urine Bilirubin Negative (NEGATIVE) Urine Urobilinogen 2.0 mg/dL (0.2-1.9) Urine Leukocyte Esterase Negative (NEGATIVE) Urine RBC 1 /HPF (0-2/HPF) Urine WBC 4 /HPF (0-5/HPF) Urine Squamous Epithelial Cells None /LPF (</=FEW) Urine Bacteria Negative /HPF (NONE-FEW) Urine Mucus Few /HPF (NONE-FEW) Urine HCG, Qualitative Negative (NEGATIVE) Microbiology Microbiology Date/Time Source Procedure Growth Status 09/26/17 17:06 Cervical Wet Prep - Final Complete ED Course/Re-evaluation Clinical Indication for ER IV: IV Access ED Course CT imaging showed acute no acute intra abdominal process. Patent was treated with Ceftriaxone IM and Doxy x 14 days. Patient was stable at time of discharge. Decision to Disposition Date: Sep 26, 2017 Decision to Disposition Time: 19:06 Depart Departure Latest Vital Signs Vital Signs Date Time Temp Pulse Resp B/P (MAP) Pulse Ox O2 Delivery O2 Flow Rate FiO2 09/26/17 16:50 98.9 96 14 144/79 99 Room Air Impression: Primary Impression: Abdominal pain Condition: Improved Disposition: HOME OR SELF-CARE Referrals: HEIDY RAJPUT DO (PCP) New Scripts Tramadol Hcl (TRAMADOL HCL) 50 Mg Tablet 50 MG PO Q6H Y for PAIN, #12 TAB 0 Refills Prov: NIRMAL FAN DO 09/26/17 Doxycycline Hyclate (DOXYCYCLINE HYCLATE) 100 Mg Capsule 100 MG PO BID for 14 Days, #28 CAPSULE Prov: NIRMAL FAN DO 09/26/17 Patient Instructions: Doxycycline (By mouth), Tramadol (By mouth) Additional Instructions: Please take one tablet of doxycycline twice daily for 14 days. Please take one tablet tramadol every 6-8 hours as needed for pain. Please return promptly if he develops worsening abdominal pain, fevers, vaginal bleeding. NIRMAL FAN DO Sep 26, 2017 19:10
[2017-09-26 19:19] VITALS: BP 138/72
[2017-09-26] MEDS ORDERED: cefTRIAXone 250 MG VIAL IM ONE (19:20)
== END 2017-09-26 19:31 | disposition home or self-care (01) ==
LOC: ER 16:50
DX: R10.2 Pelvic and perineal pain (principal); Z97.5 Presence of (intrauterine) contraceptive device
CPT/HCPCS: 74177; 76830; 81001; 81025; 85025; 87210; 87491; 87591; 96374; 96375; 99284; J0696; J1885; Q9967; 82040; 82247; 82310; 82374; 82435; 82565; 82947; 84075; 84132; 84155; 84295; 84450; 84460; 84520; 96372

== ENCOUNTER → 2017-10-12 | Outpatient (CLI) | payer MEDICAID ==
[2015-04-19 14:33] VITALS: BMI 29.9
[~2017-10-12] MED LIST changes: +DOXY-181 PO
== END ==
LOC: LAB 11:38
PROVIDERS: ATTEND Student in an Organized Health Care Education/Training Program
DX: Z20.2 Contact with and (suspected) exposure to infections with a predominantly sexual mode of transmission (principal)
CPT/HCPCS: 36415; 86592; 86703; 86803

== ENCOUNTER 2018-01-25 09:27 | Emergency (ER) | payer MEDICAID ==
[2015-04-19 14:33] VITALS: Wt 61.2 kg
--- NOTE | 2018-01-25 09:28 | ER Report ---
History and Physical Time Seen By MD: 09:28 HPI/ROS CHIEF COMPLAINT: Abdominal cramping, shortness breath, general malaise, fatigue times one week HISTORY OF PRESENT ILLNESS: Patient is a 22-year-old female here with complaints of general malaise, intermittent fevers, chills for One week. Patient reportedly has been exposed to family members with the GI bug and reports having similar symptoms one week ago with intermittent improvement with worsening symptoms or past 2 days. Patient reports nausea, decreased appetite, dehydration, orthosta sis. She reports feeling weak, unable to hold down by mouth intake for the past day prompting evaluation. Patient has subjective fevers, weakness. REVIEW OF SYSTEMS: Constitutional: + fever, + chills. Eyes: No discharge. ENT: + sore throat. Cardiovascular: + mild chest pain, no palpitations. Respiratory: No cough, + shortness of breath. Gastrointestinal: No abdominal pain, no vomiting. Genitourinary: No hematuria. Musculoskeletal: No back pain. Skin: No rashes. Neurological: + headache. Allergies: Coded Allergies: amoxicillin (Verified Allergy, Severe, HEAD TO TOW HIVES, 01/25/18) Home Meds Active Scripts Ondansetron (ZOFRAN ODT) 4 Mg Tab.rapdis, 4 MG PO Q6H PRN for NAUSEA/VOMITING, #20 TAB.MARTÍN 0 Refills Prov:NIRMAL FAN DO 01/25/18 Tramadol Hcl (TRAMADOL HCL) 50 Mg Tablet, 50 MG PO Q6H PRN for PAIN, #12 TAB 0 Refills Prov:NIRMAL FAN DO 01/25/18 Reported Medications Cranberry Extract (CRANBERRY) 250 Mg Capsule, 250 MG PO DAILY, CAPSULE 01/25/18 Multivitamin (MULTIVITAMINS) 1 Each Capsule, 1 EACH PO DAILY, CAPSULE 01/25/18 Ascorbic Acid (VITAMIN C) 500 Mg Tablet, 500 MG PO, TAB 01/25/18 Hx Smoking: No Smoking Status: Former Smoker Exposure to Second Hand Smoke?: Yes Hx Substance Use Disorder: No Hx Alcohol Use: No Constitutional Vital Sign - Last 24 Hours 01/25/18 01/25/18 01/25/18 01/25/18 09:30 09:31 09:32 09:37 Temp 98.7 Pulse 109 113 92 Resp 16 B/P (MAP) 106/78 (87) 106/78 Pulse Ox 94 93 94 O2 Delivery Room Air 01/25/18 01/25/18 01/25/18 01/25/18 09:42 09:47 09:52 09:55 Pulse 95 85 109 B/P (MAP) 100/67 (78) Pulse Ox 94 92 93 01/25/18 01/25/18 01/25/18 01/25/18 09:57 10:07 10:12 10:17 Pulse 86 85 93 83 Pulse Ox 93 95 93 90 01/25/18 01/25/18 01/25/18 01/25/18 10:22 10:27 10:30 10:32 Pulse 88 91 82 B/P (MAP) 100/60 (73) Pulse Ox 91 90 91 01/25/18 01/25/18 01/25/18 01/25/18 10:37 10:42 10:47 10:52 Pulse 94 80 83 ??? Pulse Ox 93 91 91 01/25/18 01/25/18 01/25/18 01/25/18 10:57 11:00 11:02 11:07 Pulse ? 74 B/P (MAP) 94/60 (71) Pulse Ox 91 01/25/18 01/25/18 01/25/18 01/25/18 11:12 11:17 11:22 11:27 Pulse 66 ? 102 Pulse Ox 92 91 94 01/25/18 01/25/18 01/25/18 01/25/18 11:30 11:32 11:37 11:42 Pulse 78 71 75 B/P (MAP) 97/52 (67) Pulse Ox 93 92 92 01/25/18 01/25/18 01/25/18 01/25/18 11:47 11:52 11:57 12:00 Pulse 79 87 90 B/P (MAP) 97/66 (76) Pulse Ox 92 90 94 01/25/18 01/25/18 01/25/18 01/25/18 12:02 12:07 12:12 12:17 Pulse 100 88 90 94 Pulse Ox 96 95 96 93 Physical Exam General Appearance: The patient is alert, has no immediate need for airway protection and no signs of toxicity. NAD Eyes: Pupils equal and round no pallor or injection. ENT, Mouth: Mucous membranes are moist, no erythema of post oropharynx or exudates Respiratory: There are no retractions, lungs are clear to auscultation. Cardiovascular: Regular rate and rhythm. Gastrointestinal: Abdomen is soft and + tender in all quadrants, no masses, bowel sounds normal. Neurological: No focal deficits Skin: Warm and dry, no rashes. Musculoskeletal: Neck is supple non tender. Extremities are nontender, nonswollen and have full range of motion. DIFFERENTIAL DIAGNOSIS: After history and physical exam differential diagnosis was considered for viral illness, gastrointestinal infection, appendicitis, upper respiratory infection, strep throat, viral pharyngitis, urinary tract infection Medical Decision Making Data Points Result Diagram: 01/25/1842 01/25/18 0942 Laboratory Hematology Test 01/25/18 09:42 01/25/18 09:59 01/25/18 11:21 Red Blood Count 4.92 M/uL (4.17-5.56) Mean Corpuscular Volume 95.0 fL (80.0-96.0) Mean Corpuscular Hemoglobin 32.4 pg (26.0-33.0) Mean Corpuscular Hemoglobin Concent 34.1 g/dL (32.0-36.0) Red Cell Distribution Width 12.6 % (11.5-14.5) Mean Platelet Volume 8.0 fL (7.2-11.1) Neutrophils (%) (Auto) 90.4 % (39.4-72.5) Lymphocytes (%) (Auto) 6.7 % (17.6-49.6) Monocytes (%) (Auto) 2.4 % (4.1-12.4) Eosinophils (%) (Auto) 0.2 % (0.4-6.7) Basophils (%) (Auto) 0.3 % (0.3-1.4) Nucleated RBC Relative Count (auto) 0.0 /100WBC Neutrophils # (Auto) 13.5 K/uL (2.0-7.4) Lymphocytes # (Auto) 1.0 K/uL (1.3-3.6) Monocytes # (Auto) 0.4 K/uL (0.3-1.0) Eosinophils # (Auto) 0.0 K/uL (0.0-0.5) Basophils # (Auto) 0.0 K/uL (0.0-0.1) Nucleated RBC Absolute Count (auto) 0.00 K/uL Peripheral Blood Smear No Y/N Sodium Level 140 mmol/L (137-145) Potassium Level 3.7 mmol/L (3.5-5.0) Chloride Level 102 mmol/L (98-107) Carbon Dioxide Level 25 mmol/L (22-31) Blood Urea Nitrogen 11 mg/dl (7-18) Creatinine 0.80 mg/dl (0.52-1.04) Glomerular Filtration Rate Calc > 60.0 Random Glucose 97 mg/dl (75-110) Calcium Level 9.3 mg/dl (8.4-10.2) Total Bilirubin 2.4 mg/dl (0.2-1.3) Aspartate Amino Transf (AST/SGOT) 24 U/L (0-35) Alanine Aminotransferase (ALT/SGPT) 26 U/L (0-56) Alkaline Phosphatase 57 U/L (0-126) C-Reactive Protein 1.7 mg/dl (<1.0) Total Protein 7.9 g/dl (6.3-8.2) Albumin 4.7 g/dl (3.5-5.0) Lipase 29 U/L (23-300) Group A Streptococcus Screen Negative (NEGATIVE) Urine Color Yellow Urine Clarity Cloudy Urine pH 6.0 pH (4.8-9.5) Urine Specific Willet 1.026 Urine Protein 30 mg/dL (NEGATIVE) Urine Glucose (UA) Negative mg/dL (NEGATIVE) Urine Ketones 20 mg/dL (NEGATIVE) Urine Blood Negative (NEGATIVE) Urine Nitrite Negative (NEGATIVE) Urine Bilirubin Negative (NEGATIVE) Urine Urobilinogen 2.0 mg/dL (0.2-1.9) Urine Leukocyte Esterase Negative (NEGATIVE) Urine RBC 1 /HPF (0-2/HPF) Urine WBC 2 /HPF (0-5/HPF) Urine Squamous Epithelial Cells Many /LPF (</=FEW) Urine Transitional Epithelial Cells Many /LPF (NONE-FEW) Urine Amorphous Crystals Few /HPF Urine Bacteria Negative /HPF (NONE-FEW) Urine Mucus Few /HPF (NONE-FEW) Urine HCG, Qualitative Negative (NEGATIVE) Chemistry Test 01/25/18 09:42 01/25/18 09:59 01/25/18 11:21 White Blood Count 14.9 k/uL (4.5-11.0) Red Blood Count 4.92 M/uL (4.17-5.56) Hemoglobin 15.9 g/dL (12.0-16.0) Hematocrit 46.7 % (34.0-47.0) Mean Corpuscular Volume 95.0 fL (80.0-96.0) Mean Corpuscular Hemoglobin 32.4 pg (26.0-33.0) Mean Corpuscular Hemoglobin Concent 34.1 g/dL (32.0-36.0) Red Cell Distribution Width 12.6 % (11.5-14.5) Platelet Count 243 K/uL (150-450) Mean Platelet Volume 8.0 fL (7.2-11.1) Neutrophils (%) (Auto) 90.4 % (39.4-72.5) Lymphocytes (%) (Auto) 6.7 % (17.6-49.6) Monocytes (%) (Auto) 2.4 % (4.1-12.4) Eosinophils (%) (Auto) 0.2 % (0.4-6.7) Basophils (%) (Auto) 0.3 % (0.3-1.4) Nucleated RBC Relative Count (auto) 0.0 /100WBC Neutrophils # (Auto) 13.5 K/uL (2.0-7.4) Lymphocytes # (Auto) 1.0 K/uL (1.3-3.6) Monocytes # (Auto) 0.4 K/uL (0.3-1.0) Eosinophils # (Auto) 0.0 K/uL (0.0-0.5) Basophils # (Auto) 0.0 K/uL (0.0-0.1) Nucleated RBC Absolute Count (auto) 0.00 K/uL Peripheral Blood Smear No Y/N Glomerular Filtration Rate Calc > 60.0 Calcium Level 9.3 mg/dl (8.4-10.2) Total Bilirubin 2.4 mg/dl (0.2-1.3) Aspartate Amino Transf (AST/SGOT) 24 U/L (0-35) Alanine Aminotransferase (ALT/SGPT) 26 U/L (0-56) Alkaline Phosphatase 57 U/L (0-126) C-Reactive Protein 1.7 mg/dl (<1.0) Total Protein 7.9 g/dl (6.3-8.2) Albumin 4.7 g/dl (3.5-5.0) Lipase 29 U/L (23-300) Group A Streptococcus Screen Negative (NEGATIVE) Urine Color Yellow Urine Clarity Cloudy Urine pH 6.0 pH (4.8-9.5) Urine Specific Willet 1.026 Urine Protein 30 mg/dL (NEGATIVE) Urine Glucose (UA) Negative mg/dL (NEGATIVE) Urine Ketones 20 mg/dL (NEGATIVE) Urine Blood Negative (NEGATIVE) Urine Nitrite Negative (NEGATIVE) Urine Bilirubin Negative (NEGATIVE) Urine Urobilinogen 2.0 mg/dL (0.2-1.9) Urine Leukocyte Esterase Negative (NEGATIVE) Urine RBC 1 /HPF (0-2/HPF) Urine WBC 2 /HPF (0-5/HPF) Urine Squamous Epithelial Cells Many /LPF (</=FEW) Urine Transitional Epithelial Cells Many /LPF (NONE-FEW) Urine Amorphous Crystals Few /HPF Urine Bacteria Negative /HPF (NONE-FEW) Urine Mucus Few /HPF (NONE-FEW) Urine HCG, Qualitative Negative (NEGATIVE) Urinalysis Test 01/25/18 11:21 Urine Color Yellow Urine Clarity Cloudy Urine pH 6.0 pH (4.8-9.5) Urine Specific Willet 1.026 Urine Protein 30 mg/dL (NEGATIVE) Urine Glucose (UA) Negative mg/dL (NEGATIVE) Urine Ketones 20 mg/dL (NEGATIVE) Urine Blood Negative (NEGATIVE) Urine Nitrite Negative (NEGATIVE) Urine Bilirubin Negative (NEGATIVE) Urine Urobilinogen 2.0 mg/dL (0.2-1.9) Urine Leukocyte Esterase Negative (NEGATIVE) Urine RBC 1 /HPF (0-2/HPF) Urine WBC 2 /HPF (0-5/HPF) Urine Squamous Epithelial Cells Many /LPF (</=FEW) Urine Transitional Epithelial Cells Many /LPF (NONE-FEW) Urine Amorphous Crystals Few /HPF Urine Bacteria Negative /HPF (NONE-FEW) Urine Mucus Few /HPF (NONE-FEW) Urine HCG, Qualitative Negative (NEGATIVE) EKG/Imaging Imaging Exam type: CHEST PA AND LAT History: Pain on left side of chest with deep inspiration Comparison: December 13, 2010. Findings: The lungs are free of acute effusions, infiltrates or edema. Cardiac silhouette is normal in size. The trachea is in midline. There is no evidence of a pneumothorax or pneumomediastinum. IMPRESSION: 1. No acute cardiopulmonary process is seen RIGHT LOWER QUADRANT HISTORY: Fever, elevated white blood cell count, abdominal pain and tenderness. COMPARISON: None. FINDINGS: Ultrasound of the right lower abdominal quadrant was assessed with a high frequency linear transducer. Normal right lower quadrant landmarks including the psoas muscle and external iliac vessels were observed. No free fluid is seen in the right lower abdominal quadrant. No thickened or dilated bowel loops are observed. No lymphadenopathy is identified. IMPRESSION: No ultrasound finding of an acute process in the right lower abdominal quadrant. Since the appendix was not identified with certainty, appendicitis cannot be completely excluded. Consider CT abdomen and pelvis with IV contrast for further assessment, if clinically indicated. ED Course/Re-evaluation Clinical Indication for ER IV: Hydration ED Course Patient is a 22-year-old female here with complaints of shortness breath, crampy abdominal pain since diffuse, nausea, vomiting with recent exposure to sick contacts. Patient has had decreased by mouth intake, dehydration, general malaise. Patient was found to have a white blood cell count 14.9, ketonuria. She was given 2 L IV fluids, Zofran, Toradol with moderate relief of symptoms. Chest x-ray was completed to patient's complaints of shortness of breath which was negative for pulmonary pathology. Upon reevaluation after lab findings of an elevated CRP and leukocytosis, ultrasound imaging of the right lower quadrant was obtained to rule out significant inflammatory changes or free fluid. Brody endix was not visualized and upon reevaluation repeat abdominal exam, patient remained tender diffusely. I discussed with the patient lab findings and imaging findings and decision was made to pursue outpatient treatment in the meantime with close PCP follow-up in the next 2 days for repeat labs and repeat evaluation. Patient agreed with plan. Patient agreed to return promptly if she develop worsening pain, inability to tolerate by mouth intake, fevers, increased shortness breath. She was given tramadol for pain control and Zofran for antiemetic. Patient was stable at time of discharge. Decision to Disposition Date: Jan 25, 2018 Decision to Disposition Time: 13:49 Depart Departure Latest Vital Signs Vital Signs Date Time Temp Pulse Resp B/P (MAP) Pulse Ox O2 Delivery O2 Flow Rate FiO2 01/25/18 12:17 94 93 01/25/18 12:00 97/66 (76) 01/25/18 09:31 98.7 16 Room Air Impression: Primary Impression: Nausea and vomiting in adult Additional Impression: Abdominal pain Condition: Improved Disposition: HOME OR SELF-CARE Referrals: HEIDY RAJPUT DO (PCP) New Scripts Ondansetron (ZOFRAN ODT) 4 Mg Tab.rapdis 4 MG PO Q6H PRN for NAUSEA/VOMITING, #20 TAB.MARTÍN 0 Refills Prov: NIRMAL FAN DO 01/25/18 Tramadol Hcl (TRAMADOL HCL) 50 Mg Tablet 50 MG PO Q6H PRN for PAIN, #12 TAB 0 Refills Prov: NIRMAL FAN DO 01/25/18 Patient Instructions: Abdominal Pain (ED), Acute Nausea and Vomiting (ED) Additional Instructions: You may take 1 Zofran every 4-6 hours as needed for nausea and vomiting. You may take 1 tramadol every 6-8 hours as needed for pain control. Please follow-up with your family doctor in the next 2 days for follow-up evaluation and follow- up labs. In the meantime if symptoms worsen or fail to improve or should develop fevers, inability to hold down fluids, worsening abdominal pain please return p romptly to the emergency department. Problem Qualifiers NIRMAL FAN DO Jan 25, 2018 09:28
[2018-01-25] MEDS ORDERED: CRAN250C2 PO (09:40)
[2018-01-25] MEDS ORDERED: ASCO-182 PO (09:40)
[2018-01-25] MEDS ORDERED: MULT1CAP59 PO (09:40)
[2018-01-25] MEDS ORDERED: NS(*) 0.9% 1000 ML BAG 1,000 ML IV ONE ×2 (09:46→11:55)
[2018-01-25] MEDS ORDERED: KETOROLAC 30 MG/ML VIAL IVP ONE (09:50)
[2018-01-25] MEDS ORDERED: ONDANSETRON 4 MG/2 ML VIAL IVP ONE (09:50)
[2018-01-25 09:55] LABS: PLATELET COUNT, AUTOMATED 243 K/uL (150-450)
--- NOTE | 2018-01-25 10:28 | RADIOLOGY IMAGING REPORT ---
FACILITY: [facility] PATIENT NAME: Joyce Smalls : 1995 MR: [id number] V: [id number] EXAM DATE: [id number] ORDERING PHYSICIAN: NIRMAL FAN TECHNOLOGIST: Location: [facility] Patient: Joyce Smalls : 1995 Visit/Account:[id number] Date of Sevice: 01/25/2018 Exam type: CHEST PA AND LAT History: Pain on left side of chest with deep inspiration Comparison: December 13, 2010. Findings: The lungs are free of acute effusions, infiltrates or edema. Cardiac silhouette is normal in size. The trachea is in midline. There is no evidence of a pneumothorax or pneumomediastinum. IMPRESSION: 1. No acute cardiopulmonary process is seen Report Dictated By: Nurai Guerrero MD at 01/25/2018 10:23 AM Report E-Signed By: Nuria Guerrero MD at 01/25/2018 10:24 AM WSN:[email or web address]
--- NOTE | 2018-01-25 13:01 | RADIOLOGY IMAGING REPORT ---
FACILITY: [facility] PATIENT NAME: Joyce Smalls : 1995 MR: [id number] V: [id number] EXAM DATE: ORDERING PHYSICIAN: NIRMAL FAN TECHNOLOGIST: Location: [facility] [place] Patient: Joyce Smalls : 1995 Visit/Account:[id number] Date of Sevice: 01/25/2018 RIGHT LOWER QUADRANT HISTORY: Fever, elevated white blood cell count, abdominal pain and tenderness. COMPARISON: None. FINDINGS: Ultrasound of the right lower abdominal quadrant was assessed with a high frequency linear transducer . Normal right lower quadrant landmarks including the psoas muscle and external iliac vessels were obse rved. No free fluid is seen in the right lower abdominal quadrant. No thickened or dilated bowel lo ops are observed. No lymphadenopathy is identified. IMPRESSION: No ultrasound finding of an acute process in the right lower abdominal quadrant. Since the appendix was not identified with certainty, appendicitis cannot be completely excluded. Consider CT abdomen a nd pelvis with IV contrast for further assessment, if clinically indicated. Report Dictated By: Mulu Harper MD at 01/25/2018 12:49 PM Report E-Signed By: Mulu Harper MD at 01/25/2018 12:56 PM WSN:[email or web address]
[2018-01-25] MEDS ORDERED: TRAM-420 PO (13:23)
[2018-01-25] MEDS ORDERED: ONDA4TAB PO (13:29)
[2018-01-25 13:30] VITALS: BP 104/58
== END 2018-01-25 13:33 | disposition home or self-care (01) ==
LOC: ER 09:31
DX: R11.2 Nausea with vomiting, unspecified (principal); R10.84 Generalized abdominal pain
CPT/HCPCS: 71046; 76705; 81001; 81025; 83690; 85025; 86140; 87081; 87880; 96361; 96374; 96375; 99284; J1885; J2405; J7030; 82040; 82247; 82310; 82374; 82435; 82565; 82947; 84075; 84132; 84155; 84295; 84450; 84460; 84520

== ENCOUNTER 2018-02-12 05:30 | Emergency (ER) | payer MEDICAID ==
[2015-04-19 14:33] VITALS: Wt 63.5 kg
[~2018-02-12 05:30] MED LIST changes: +ASCO-182 PO; +CRAN250C2 PO; +ONDA4TAB PO
--- NOTE | 2018-02-12 05:31 | ER Report ---
History and Physical Time Seen By MD: 05:31 (VERONICA CHRISTIANSON DO) HPI/ROS CHIEF COMPLAINT: Tender lump Navel HISTORY OF PRESENT ILLNESS: 22-year-old female presents ambulatory to the ER complaining of a lump in her navel. It is very tender since 9:30 last evening. She reports no heavy lifting or exercising. She has a 3-year-old daughter. Patient was recent seen here for GI symptoms and vomiting approximately 2 weeks ago. Patient is 3 years out from a lap scopic, cholecystectomy. She has an umbilical scar. She notes that approximately 1-2 cm mass in her navel area is extremely tender to palpation. REVIEW OF SYSTEMS: Respiratory: No cough, no dyspnea. Cardiovascular: No chest pain, no palpitations. Gastrointestinal: No vomiting, no abdominal pain. Musculoskeletal: No back pain. (VERONICA CHRISTIANSON DO) Allergies: Coded Allergies: amoxicillin (Verified Allergy, Severe, HEAD TO TOW HIVES, 02/12/18) Home Meds Reported Medications Cranberry Extract (CRANBERRY) 250 Mg Capsule, 250 MG PO DAILY, CAPSULE 01/25/18 Multivitamin (MULTIVITAMINS) 1 Each Capsule, 1 EACH PO DAILY, CAPSULE 01/25/18 Ascorbic Acid (VITAMIN C) 500 Mg Tablet, 500 MG PO, TAB 01/25/18 Discontinued Scripts Ondansetron (ZOFRAN ODT) 4 Mg Tab.rapdis, 4 MG PO Q6H PRN for NAUSEA/VOMITING, #20 TAB.MARTÍN 0 Refills Prov:NIRMAL FAN DO 01/25/18 Tramadol Hcl (TRAMADOL HCL) 50 Mg Tablet, 50 MG PO Q6H PRN for PAIN, #12 TAB 0 Refills Prov:NIRMAL FAN DO 01/25/18 Reviewed Nurses Notes: Yes Old Medical Records Reviewed: Yes (VERONICA CHRISTIANSON DO) Hx Smoking: No Smoking Status: Former Smoker Exposure to Second Hand Smoke?: Yes Hx Substance Use Disorder: No Hx Alcohol Use: No (VERONICA CHRISTIANSON DO) Constitutional Vital Sign - Last 24 Hours 02/12/18 02/12/18 02/12/18 02/12/18 05:36 05:37 05:46 06:00 Temp 97.9 Pulse 85 92 Resp 15 B/P (MAP) 122/94 122/94 (103) 121/82 (95) 120/82 (95) Pulse Ox 97 93 O2 Delivery Room Air 02/12/18 02/12/18 02/12/18 02/12/18 06:30 06:35 06:40 06:55 Pulse 85 96 B/P (MAP) 110/79 (89) 127/75 (92) Pulse Ox 99 98 02/12/18 02/12/18 02/12/18 07:00 07:30 07:40 Pulse 79 B/P (MAP) 118/68 (85) 113/74 (87) Pulse Ox 100 (YOLANDA HATFIELD MD) Physical Exam Vital signs stable, afebrile, pulse ox normal General Appearance: The patient is alert, has no immediate need for airway protection and no current signs of toxicity. Moderate distress Eyes: Pupils equal and round no injection. Respiratory: Chest is non tender, lungs are clear to auscultation. Cardiac: regular rate and rhythm Gastrointestinal: Abdomen is soft, there is a tender mass approximately 1.5 cm in the navel area consistent with a incarcerated umbilical hernia., no masses, bowel sounds normal. Musculoskeletal: Neck: Neck is supple and non tender. Extremities have full range of motion and are non tender. Skin: No rashes or lesions. DIFFERENTIAL DIAGNOSIS: After history and physical exam differential diagnosis was considered for abdominal pain including but not limited to appendicitis, cholecystitis, umbilical hernia, gastritis and urinary tract infection. (VERONICA CHRISTIANSON DO) Medical Decision Making Data Points Result Diagram: 02/12/18 0557 02/12/18 0557 Laboratory Hematology Test 02/12/18 05:57 02/12/18 06:05 Red Blood Count 4.99 M/uL (4.17-5.56) Mean Corpuscular Volume 94.1 fL (80.0-96.0) Mean Corpuscular Hemoglobin 33.1 pg (26.0-33.0) Mean Corpuscular Hemoglobin Concent 35.2 g/dL (32.0-36.0) Red Cell Distribution Width 12.5 % (11.5-14.5) Mean Platelet Volume 7.7 fL (7.2-11.1) Neutrophils (%) (Auto) 63.5 % (39.4-72.5) Lymphocytes (%) (Auto) 27.4 % (17.6-49.6) Monocytes (%) (Auto) 7.5 % (4.1-12.4) Eosinophils (%) (Auto) 1.2 % (0.4-6.7) Basophils (%) (Auto) 0.4 % (0.3-1.4) Nucleated RBC Relative Count (auto) 0.0 /100WBC Neutrophils # (Auto) 3.9 K/uL (2.0-7.4) Lymphocytes # (Auto) 1.7 K/uL (1.3-3.6) Monocytes # (Auto) 0.5 K/uL (0.3-1.0) Eosinophils # (Auto) 0.1 K/uL (0.0-0.5) Basophils # (Auto) 0.0 K/uL (0.0-0.1) Nucleated RBC Absolute Count (auto) 0.00 K/uL Sodium Level 139 mmol/L (137-145) Potassium Level 3.5 mmol/L (3.5-5.0) Chloride Level 99 mmol/L (98-107) Carbon Dioxide Level 28 mmol/L (22-31) Blood Urea Nitrogen 12 mg/dl (7-18) Creatinine 0.90 mg/dl (0.52-1.04) Glomerular Filtration Rate Calc > 60.0 Random Glucose 102 mg/dl (75-110) Calcium Level 9.6 mg/dl (8.4-10.2) Total Bilirubin 1.1 mg/dl (0.2-1.3) Aspartate Amino Transf (AST/SGOT) 24 U/L (0-35) Alanine Aminotransferase (ALT/SGPT) 26 U/L (0-56) Alkaline Phosphatase 73 U/L (0-126) Total Protein 8.4 g/dl (6.3-8.2) Albumin 4.7 g/dl (3.5-5.0) Amylase Level 59 U/L (0-110) Lipase 68 U/L (23-300) Urine Color Yellow Urine Clarity Clear Urine pH 5.0 pH (4.8-9.5) Urine Specific Hubbell 1.015 Urine Protein Negative mg/dL (NEGATIVE) Urine Glucose (UA) Negative mg/dL (NEGATIVE) Urine Ketones Negative mg/dL (NEGATIVE) Urine Blood Negative (NEGATIVE) Urine Nitrite Negative (NEGATIVE) Urine Bilirubin Negative (NEGATIVE) Urine Urobilinogen Negative mg/dL (0.2-1.9) Urine Leukocyte Esterase Negative (NEGATIVE) Urine RBC <1 /HPF (0-2/HPF) Urine WBC 1 /HPF (0-5/HPF) Urine Squamous Epithelial Cells Few /LPF (</=FEW) Urine Transitional Epithelial Cells Few /LPF (NONE-FEW) Urine Bacteria Negative /HPF (NONE-FEW) Urine Mucus Few /HPF (NONE-FEW) Urine HCG, Qualitative Negative (NEGATIVE) Chemistry Test 02/12/18 05:57 02/12/18 06:05 White Blood Count 6.2 k/uL (4.5-11.0) Red Blood Count 4.99 M/uL (4.17-5.56) Hemoglobin 16.5 g/dL (12.0-16.0) Hematocrit 47.0 % (34.0-47.0) Mean Corpuscular Volume 94.1 fL (80.0-96.0) Mean Corpuscular Hemoglobin 33.1 pg (26.0-33.0) Mean Corpuscular Hemoglobin Concent 35.2 g/dL (32.0-36.0) Red Cell Distribution Width 12.5 % (11.5-14.5) Platelet Count 253 K/uL (150-450) Mean Platelet Volume 7.7 fL (7.2-11.1) Neutrophils (%) (Auto) 63.5 % (39.4-72.5) Lymphocytes (%) (Auto) 27.4 % (17.6-49.6) Monocytes (%) (Auto) 7.5 % (4.1-12.4) Eosinophils (%) (Auto) 1.2 % (0.4-6.7) Basophils (%) (Auto) 0.4 % (0.3-1.4) Nucleated RBC Relative Count (auto) 0.0 /100WBC Neutrophils # (Auto) 3.9 K/uL (2.0-7.4) Lymphocytes # (Auto) 1.7 K/uL (1.3-3.6) Monocytes # (Auto) 0.5 K/uL (0.3-1.0) Eosinophils # (Auto) 0.1 K/uL (0.0-0.5) Basophils # (Auto) 0.0 K/uL (0.0-0.1) Nucleated RBC Absolute Count (auto) 0.00 K/uL Glomerular Filtration Rate Calc > 60.0 Calcium Level 9.6 mg/dl (8.4-10.2) Total Bilirubin 1.1 mg/dl (0.2-1.3) Aspartate Amino Transf (AST/SGOT) 24 U/L (0-35) Alanine Aminotransferase (ALT/SGPT) 26 U/L (0-56) Alkaline Phosphatase 73 U/L (0-126) Total Protein 8.4 g/dl (6.3-8.2) Albumin 4.7 g/dl (3.5-5.0) Amylase Level 59 U/L (0-110) Lipase 68 U/L (23-300) Urine Color Yellow Urine Clarity Clear Urine pH 5.0 pH (4.8-9.5) Urine Specific Hubbell 1.015 Urine Protein Negative mg/dL (NEGATIVE) Urine Glucose (UA) Negative mg/dL (NEGATIVE) Urine Ketones Negative mg/dL (NEGATIVE) Urine Blood Negative (NEGATIVE) Urine Nitrite Negative (NEGATIVE) Urine Bilirubin Negative (NEGATIVE) Urine Urobilinogen Negative mg/dL (0.2-1.9) Urine Leukocyte Esterase Negative (NEGATIVE) Urine RBC <1 /HPF (0-2/HPF) Urine WBC 1 /HPF (0-5/HPF) Urine Squamous Epithelial Cells Few /LPF (</=FEW) Urine Transitional Epithelial Cells Few /LPF (NONE-FEW) Urine Bacteria Negative /HPF (NONE-FEW) Urine Mucus Few /HPF (NONE-FEW) Urine HCG, Qualitative Negative (NEGATIVE) Urinalysis Test 02/12/18 06:05 Urine Color Yellow Urine Clarity Clear Urine pH 5.0 pH (4.8-9.5) Urine Specific Hubbell 1.015 Urine Protein Negative mg/dL (NEGATIVE) Urine Glucose (UA) Negative mg/dL (NEGATIVE) Urine Ketones Negative mg/dL (NEGATIVE) Urine Blood Negative (NEGATIVE) Urine Nitrite Negative (NEGATIVE) Urine Bilirubin Negative (NEGATIVE) Urine Urobilinogen Negative mg/dL (0.2-1.9) Urine Leukocyte Esterase Negative (NEGATIVE) Urine RBC <1 /HPF (0-2/HPF) Urine WBC 1 /HPF (0-5/HPF) Urine Squamous Epithelial Cells Few /LPF (</=FEW) Urine Transitional Epithelial Cells Few /LPF (NONE-FEW) Urine Bacteria Negative /HPF (NONE-FEW) Urine Mucus Few /HPF (NONE-FEW) Urine HCG, Qualitative Negative (NEGATIVE) (YOLANDA HATFIELD MD) EKG/Imaging Imaging Results: CT scan of the abdomen and pelvis with IV contrast was obtained. The results of the study are CT of the abdomen and pelvis with contrast: Indication: Umbilical hernia and pain. Technique: Helical CT was performed through the abdomen and pelvis following IV contrast enhancement with 75 cc of Isovue-370. Multiplanar reconstructions are reviewed. One of the following dose optimization techniques was utilized in the performance of this exam: Automated exposure control; adjustment of the mA and/or kV according to the patient's size; or use of an iterative reconstruction technique. Specific details can be referenced in the facility's radiology CT exam operational policy. Comparison: 09/26/2017 Lower lung sanchez: No focal parenchymal or pleural abnormality. Liver: Normal in size, shape, and density. There is uniform enhancement of the venous structures. Gallbladder/biliary tree: There are surgical clips related to prior cholecystectomy. Mild dilatation of the biliary tree appears stable, consistent with a postcholecystectomy state. Pancreas: Normal in size, shape, and density. Spleen: Normal in size, shape, and density. Adrenal glands: Within normal limits. Kidneys/urinary bladder: The kidneys are normal in size, shape, and density. There are no signs of urinary tract calculus or obstruction. The bladder is homogeneous and unremarkable, as visualized. Intestinal structures: Unremarkable, as visualized. There are no signs of obstruction or focal inflammatory changes. The appendix appears normal. Pelvis: An IUD appears to be in satisfactory orientation within the uterus. The uterus and adnexal structures are otherwise unremarkable. There are no signs of fluid collection or inflammatory process. Aorta and vascular structures: Within normal limits. Ascites or fluid collections: None seen. Abdominal wall: A small umbilical hernia is present, measuring 1.5 x 1.2 cm in size. There are no signs of intestinal involvement or inflammatory changes. The abdominal wall structures are otherwise unremarkable. Skeletal structures: Well mineralized and intact. No acute deformity. Impression: There is a small uncomplicated periumbilical hernia. No acute process is otherwise noted in the abdomen or pelvis. The study was read by the radiologist. I viewed the images myself on the PACS system. (VERONICA CHRISTIANSON DO) ED Course/Re-evaluation Clinical Indication for ER IV: Hydration, IV Access Turned Over The care of the patient was turned over to Dr. Kamaljit Hatfield. Dr. Christianson I authorize my typed signature that I authenticated this report. (VERONICA CHRISTIANSON DO) ED Course I t/o c/o pt at 0700; CT reveals periumbilical hernia defect without hernia contents. On rpt exam, I noted reducible 1cm hernia; upon reduction, pt's pain essentially relieved; it appears hernia was incarcerated for < 30 min as this again occured between CT and my bedside exam. I will d/c with surgery f/u and SRP's. Pt understands, is comfortable at d/c and will rtn if worse. She declines pain medications at this time. Decision to Disposition Date: Feb 12, 2018 Decision to Disposition Time: 08:09 (YOLANDA HATFIELD MD) Depart Departure Latest Vital Signs Vital Signs Date Time Temp Pulse Resp B/P (MAP) Pulse Ox O2 Delivery O2 Flow Rate FiO2 02/12/18 07:40 79 100 02/12/18 07:30 113/74 (87) 02/12/18 05:36 97.9 15 Room Air (YOLANDA HATFIELD MD) Impression: Primary Impression: Periumbilical hernia Condition: Improved Disposition: HOME OR SELF-CARE Referrals: HEIDY RAJPUT DO (PCP) SAMIA WYLIE MD 5 Days Patient Instructions: Umbilical Hernia (ED) Additional Instructions: As we discussed, I recommend ice, 20 min at a time, and ibuprofen as needed for discomfort. If you are not able to press hernia back in, have vomiting, uncontrolled pain, or any concerns, return to Emergency Department immediately. VERONICA CHRISTIANSON DO Feb 12, 2018 05:31 YOLANDA HATFIELD MD Feb 12, 2018 08:11
[2018-02-12] MEDS ORDERED: fentaNYL CITR 100 MCG/2 ML AMP IVP ONE (05:50)
[2018-02-12] MEDS ORDERED: NS(*) 0.9% 1000 ML BAG 1,000 ML IV ONE (05:50)
[2018-02-12] MEDS ORDERED: ONDANSETRON 4 MG/2 ML VIAL IVP ONE (05:50)
[2018-02-12] MEDS ORDERED: IOPAMIDOL 76% 75 ML INFUS BTL 75 ML ONE (06:12)
[2018-02-12 06:13] LABS: PLATELET COUNT, AUTOMATED 253 K/uL (150-450)
--- NOTE | 2018-02-12 07:37 | RADIOLOGY IMAGING REPORT ---
FACILITY: [facility] [place]IENT NAME: Joyce Smalls : 1995 MR: [id number] V: [id number] EXAM DATE: [id number] ORDERING PHYSICIAN: VERONICA ALBRECHT TECHNOLOGIST: Location[place] [facility] [place] Patient: Joyce Smalls : 1995 Visit/Account:[id number] Date of Sevice: 02/12/2018 CT of the abdomen and pelvis with contrast: Indication: Umbilical hernia and pain. Technique: Helical CT was performed through the abdomen and pelvis following IV contrast enhancement with 75 cc of Isovue-370. Multiplanar reconstructions are reviewed. One of the following dose optimization techniques was utilized in the performance of this exam: Autom ated exposure control; adjustment of the mA and/or kV according to the patient's size; or use of an i terative reconstruction technique. Specific details can be referenced in the facility's radiology CT exam operational policy. Comparison: 09/26/2017 Lower lung sanchez: No focal parenchymal or pleural abnormality. Liver: Normal in size, shape, and density. There is uniform enhancement of the venous structures. Gallbladder/biliary tree: There are surgical clips related to prior cholecystectomy. Mild dilatation of the biliary tree appears stable, consistent with a postcholecystectomy state. Pancreas: Normal in size, shape, and density. Spleen: Normal in size, shape, and density. Adrenal glands: Within normal limits. Kidneys/urinary bladder: The kidneys are normal in size, shape, and density. There are no signs of ur inary tract calculus or obstruction. The bladder is homogeneous and unremarkable, as visualized. Intestinal structures: Unremarkable, as visualized. There are no signs of obstruction or focal inflam matory changes. The appendix appears normal. Pelvis: An IUD appears to be in satisfactory orientation within the uterus. The uterus and adnexal st ructures are otherwise unremarkable. There are no signs of fluid collection or inflammatory process. Aorta and vascular structures: Within normal limits. Ascites or fluid collections: None seen. Abdominal wall: A small umbilical hernia is present, measuring 1.5 x 1.2 cm in size. There are no sig ns of intestinal involvement or inflammatory changes. The abdominal wall structures are otherwise unremarkable. Skeletal structures: Well mineralized and intact. No acute deformity. Impression: There is a small uncomplicated periumbilical hernia. No acute process is otherwise noted in the abdomen or pelvis. Report Dictated By: Danilo Kaur MD at 02/12/2018 7:15 AM Report E-Signed By: Danilo Kaur MD at 02/12/2018 7:32 AM WSN:[id number]
[2018-02-12 08:00] VITALS: BP 111/77
[2018-02-15] MEDS ORDERED: PANT40TA65 PO (09:04)
== END 2018-02-12 08:18 | disposition home or self-care (01) ==
LOC: ER 05:39
DX: K42.9 Umbilical hernia without obstruction or gangrene (principal)
CPT/HCPCS: 74177; 81001; 81025; 82150; 83690; 85025; 96361; 96374; 96375; 99284; J2405; J3010; J7030; Q9967; 82040; 82247; 82310; 82374; 82435; 82565; 82947; 84075; 84132; 84155; 84295; 84450; 84460; 84520

== ENCOUNTER 2018-04-05 07:47 | Emergency (ER) | payer MEDICAID ==
[2015-04-19 14:33] VITALS: Wt 59.9 kg
[~2018-04-05 07:47] MED LIST changes: +DOCU-416 PO; +OXYC-854 PO; +PANT40TA65 PO
[2018-04-05 07:53] VITALS: BP 113/94
[2018-04-05] MEDS ORDERED: ONDANSETRON 4 MG/2 ML VIAL IVP ONE (08:10)
[2018-04-05] MEDS ORDERED: GLYCOPYRROLATE 0.2MG/ML 1 ML INJ IVP ONE (08:10)
--- NOTE | 2018-04-05 08:14 | ER Report ---
History and Physical Time Seen By MD: 08:00 Hx. of Stated Complaint: VOMITING SINCE 1999 LAST NIGHT. HPI/ROS CHIEF COMPLAINT: Vomiting HISTORY OF PRESENT ILLNESS: 23-year-old female is approximately 3 weeks status post ventral hernia repair. She has been doing well since this time. She began vomiting last night and has vomited numerous times, vomited was initially food, now mostly "white foam". The vomiting was preceded by general abdominal cramping which is continued. This is moderate in severity, the nausea is the most severe symptom. Patient also does note pain around the incision site, she states this developed after multiple episodes of vomiting. She has had one episode of loose watery stool this morning. She feels muscle aches throughout, no fevers, no chest pain, no shortness of breath. She has had no recent travel. She was in contact with an individual on who was found have similar symptoms yesterday. REVIEW OF SYSTEMS: Constitutional: No fever, no chills. Eyes: No discharge. ENT: No sore throat. Cardiovascular: No chest pain, no palpitations. Respiratory: No cough, no shortness of breath. Gastrointestinal: above Genitourinary: decreased urination Musculoskeletal: myalgias Skin: No rashes. Neurological: mild gottlieb Remainder of the 14 system rev: Yes Allergies: Coded Allergies: amoxicillin (Verified Allergy, Severe, HEAD TO TOW HIVES, 04/05/18) Home Meds Active Scripts Pantoprazole Sodium (PANTOPRAZOLE SODIUM) 40 Mg Tablet.dr, 1 TAB PO DAILY, #30 TAB 3 Refills Prov:SAMIA WYLIE MD 02/15/18 Discontinued Reported Medications Cranberry Extract (CRANBERRY) 250 Mg Capsule, 250 MG PO DAILY, CAPSULE 01/25/18 Multivitamin (MULTIVITAMINS) 1 Each Capsule, 1 EACH PO DAILY, CAPSULE 01/25/18 Ascorbic Acid (VITAMIN C) 500 Mg Tablet, 500 MG PO, TAB 01/25/18 Discontinued Scripts Docusate Sodium (COLACE) 100 Mg Capsule, 1 CAP PO BID, #30 CAP 0 Refills TAKE WITH A FULL GLASS OF WATER Prov:SAMIA WYLIE MD 03/18/18 Oxycodone Hcl/Acet 5/325 Mg (ENDOCET 5-325 TABLET) 1 Each Tablet, 1 TAB PO Q4H PRN for PAIN, #20 TAB 0 Refills Prov:SAMIA WYLIE MD 03/18/18 Reviewed Nurses Notes: Yes Hx Smoking: Yes (current vape) Smoking Status: Light Tobacco Smoker Exposure to Second Hand Smoke?: Yes Hx Substance Use Disorder: Yes Hx Alcohol Use: No Constitutional Vital Sign - Last 24 Hours 04/05/18 07:53 Temp 98.0 Pulse 106 Resp 20 B/P (MAP) 113/94 Pulse Ox 91 O2 Delivery Room Air Physical Exam General Appearance: The patient is alert, has no immediate need for airway protection and no signs of toxicity. She is wretching and appears uncomfortable Eyes: Pupils equal and round no pallor or injection. ENT, Mouth: Mucous membranes are moist. Respiratory: There are no retractions, lungs are clear to auscultation. Cardiovascular: Regular rate and rhythm. Gastrointestinal: abdomen is flat, mildly ttp throughout, hyperactive bowel sounds. Supraumbilical hernia incision is intact, non erythematous, non edematous. Pt is tender at this area, though without significant ttp deep to incision. Neurological: alert, moves all ext Skin: Warm and dry, no rashes. Musculoskeletal: Extremities are nontender, nonswollen and have full range of motion. DIFFERENTIAL DIAGNOSIS: After history and physical exam differential diagnosis was considered for abdominal pain including but not limited to appendicitis, cholecystitis, gastritis and urinary tract infection, obstruction, incisional i nfection, gastroenteritis - toxic v infectious Medical Decision Making Data Points Result Diagram: 04/05/18 0759 04/05/18 0759 Laboratory Hematology Test 04/05/18 07:59 Red Blood Count 4.95 M/uL (4.17-5.56) Mean Corpuscular Volume 95.0 fL (80.0-96.0) Mean Corpuscular Hemoglobin 32.2 pg (26.0-33.0) Mean Corpuscular Hemoglobin Concent 33.8 g/dL (32.0-36.0) Red Cell Distribution Width 12.7 % (11.5-14.5) Mean Platelet Volume 7.8 fL (7.2-11.1) Neutrophils (%) (Auto) 88.1 % (39.4-72.5) Lymphocytes (%) (Auto) 6.8 % (17.6-49.6) Monocytes (%) (Auto) 4.4 % (4.1-12.4) Eosinophils (%) (Auto) 0.3 % (0.4-6.7) Basophils (%) (Auto) 0.4 % (0.3-1.4) Nucleated RBC Relative Count (auto) 0.0 /100WBC Neutrophils # (Auto) 12.2 K/uL (2.0-7.4) Lymphocytes # (Auto) 0.9 K/uL (1.3-3.6) Monocytes # (Auto) 0.6 K/uL (0.3-1.0) Eosinophils # (Auto) 0.0 K/uL (0.0-0.5) Basophils # (Auto) 0.1 K/uL (0.0-0.1) Nucleated RBC Absolute Count (auto) 0.00 K/uL Urine Color R[place]elia Urine Clarity Turbid Urine pH 5.0 pH (4.8-9.5) Urine Specific [place] 1.028 Urine Protein 100 mg/dL (NEGATIVE) Urine Glucose (UA) Negative mg/dL (NEGATIVE) Urine Ketones 20 mg/dL (NEGATIVE) Urine Blood Negative (NEGATIVE) Urine Nitrite Negative (NEGATIVE) Urine Bilirubin Negative (NEGATIVE) Urine Urobilinogen 2.0 mg/dL (0.2-1.9) Urine Leukocyte Esterase Negative (NEGATIVE) Urine RBC None /HPF (0-2/HPF) Urine WBC None /HPF (0-5/HPF) Urine Squamous Epithelial Cells Many /LPF (</=FEW) Urine Calcium Oxalate Crystals Many /HPF (NONE) Urine Amorphous Crystals Many /HPF Urine Bacteria Negative /HPF (NONE-FEW) Urine Mucus Few /HPF (NONE-FEW) Sodium Level 140 mmol/L (137-145) Potassium Level 3.6 mmol/L (3.5-5.0) Chloride Level 103 mmol/L (98-107) Carbon Dioxide Level 24 mmol/L (22-31) Blood Urea Nitrogen 12 mg/dl (7-18) Creatinine 0.90 mg/dl (0.52-1.04) Glomerular Filtration Rate Calc > 60.0 Random Glucose 111 mg/dl (75-110) Calcium Level 9.6 mg/dl (8.4-10.2) Total Bilirubin 3.3 mg/dl (0.2-1.3) Aspartate Amino Transf (AST/SGOT) 36 U/L (0-35) Alanine Aminotransferase (ALT/SGPT) 26 U/L (0-56) Alkaline Phosphatase 83 U/L (0-126) Total Protein 8.5 g/dl (6.3-8.2) Albumin 4.9 g/dl (3.5-5.0) Lipase 72 U/L (23-300) Human Chorionic Gonadotropin, Qual Negative (NEGATIVE) Chemistry Test 04/05/18 07:59 White Blood Count 13.8 k/uL (4.5-11.0) Red Blood Count 4.95 M/uL (4.17-5.56) Hemoglobin 15.9 g/dL (12.0-16.0) Hematocrit 47.0 % (34.0-47.0) Mean Corpuscular Volume 95.0 fL (80.0-96.0) Mean Corpuscular Hemoglobin 32.2 pg (26.0-33.0) Mean Corpuscular Hemoglobin Concent 33.8 g/dL (32.0-36.0) Red Cell Distribution Width 12.7 % (11.5-14.5) Platelet Count 283 K/uL (150-450) Mean Platelet Volume 7.8 fL (7.2-11.1) Neutrophils (%) (Auto) 88.1 % (39.4-72.5) Lymphocytes (%) (Auto) 6.8 % (17.6-49.6) Monocytes (%) (Auto) 4.4 % (4.1-12.4) Eosinophils (%) (Auto) 0.3 % (0.4-6.7) Basophils (%) (Auto) 0.4 % (0.3-1.4) Nucleated RBC Relative Count (auto) 0.0 /100WBC Neutrophils # (Auto) 12.2 K/uL (2.0-7.4) Lymphocytes # (Auto) 0.9 K/uL (1.3-3.6) Monocytes # (Auto) 0.6 K/uL (0.3-1.0) Eosinophils # (Auto) 0.0 K/uL (0.0-0.5) Basophils # (Auto) 0.1 K/uL (0.0-0.1) Nucleated RBC Absolute Count (auto) 0.00 K/uL Urine Color [place] Urine Clarity Turbid Urine pH 5.0 pH (4.8-9.5) Urine Specific [place] 1.028 Urine Protein 100 mg/dL (NEGATIVE) Urine Glucose (UA) Negative mg/dL (NEGATIVE) Urine Ketones 20 mg/dL (NEGATIVE) Urine Blood Negative (NEGATIVE) Urine Nitrite Negative (NEGATIVE) Urine Bilirubin Negative (NEGATIVE) Urine Urobilinogen 2.0 mg/dL (0.2-1.9) Urine Leukocyte Esterase Negative (NEGATIVE) Urine RBC None /HPF (0-2/HPF) Urine WBC None /HPF (0-5/HPF) Urine Squamous Epithelial Cells Many /LPF (</=FEW) Urine Calcium Oxalate Crystals Many /HPF (NONE) Urine Amorphous Crystals Many /HPF Urine Bacteria Negative /HPF (NONE-FEW) Urine Mucus Few /HPF (NONE-FEW) Glomerular Filtration Rate Calc > 60.0 Calcium Level 9.6 mg/dl (8.4-10.2) Total Bilirubin 3.3 mg/dl (0.2-1.3) Aspartate Amino Transf (AST/SGOT) 36 U/L (0-35) Alanine Aminotransferase (ALT/SGPT) 26 U/L (0-56) Alkaline Phosphatase 83 U/L (0-126) Total Protein 8.5 g/dl (6.3-8.2) Albumin 4.9 g/dl (3.5-5.0) Lipase 72 U/L (23-300) Human Chorionic Gonadotropin, Qual Negative (NEGATIVE) Urinalysis Test 04/05/18 07:59 Urine Color [place] Urine Clarity Turbid Urine pH 5.0 pH (4.8-9.5) Urine Specific [place] 1.028 Urine Protein 100 mg/dL (NEGATIVE) Urine Glucose (UA) Negative mg/dL (NEGATIVE) Urine Ketones 20 mg/dL (NEGATIVE) Urine Blood Negative (NEGATIVE) Urine Nitrite Negative (NEGATIVE) Urine Bilirubin Negative (NEGATIVE) Urine Urobilinogen 2.0 mg/dL (0.2-1.9) Urine Leukocyte Esterase Negative (NEGATIVE) Urine RBC None /HPF (0-2/HPF) Urine WBC None /HPF (0-5/HPF) Urine Squamous Epithelial Cells Many /LPF (</=FEW) Urine Calcium Oxalate Crystals Many /HPF (NONE) Urine Amorphous Crystals Many /HPF Urine Bacteria Negative /HPF (NONE-FEW) Urine Mucus Few /HPF (NONE-FEW) ED Course/Re-evaluation ED Course Pt presents with sudden onset vomitng > diarrhea > abd pain. She is 3 wks s/p ventral hernia repair but on initial and subsequent exam, this is unlikley due t o complication of this. Her rpt exam is without ttp or disention. She is tolerating po and feels much improved. Of note, she does have an elevated bilirubin without sg elevation of lft's. She is also s/p cholecystectomy. Likely related to acute vomiting, but pt aware of need to f/u with pcm for rpt evaluation. She also has f/u with surgeon this afternoon. Understands SRP's. Decision to Disposition Date: Apr 05, 2018 Decision to Disposition Time: 09:44 Depart Departure Latest Vital Signs Vital Signs Date Time Temp Pulse Resp B/P (MAP) Pulse Ox O2 Delivery O2 Flow Rate FiO2 04/05/18 07:53 98.0 106 20 113/94 91 Room Air Impression: Primary Impression: Vomiting and diarrhea Additional Impressions: Abdominal pain Elevated bilirubin Condition: Improved Disposition: HOME OR SELF-CARE Referrals: HEIDY SU DO (PCP) 5 Days for repeat testing of bilirubin, liver functions New Scripts Ondansetron 4 Mg Odt (ONDANSETRON 4 MG ODT) 4 Mg Tab.rapdis 4 MG PO ONCE PRN for NAUSEA, #10 TAB Prov: YOLANDA HATFIELD MD 04/05/18 Patient Instructions: Acute Nausea and Vomiting (ED) Additional Instructions: As we discussed, follow up with Dr. Su for repeat testing of bilirubin/liver functions. I do expect this to improve with your symptoms. Return immediately if feeling worse, not tolerating fluids, change in color of skin, or any concerns. Problem Qualifiers Additional Impressions: Abdominal pain Abdominal location: generalized Qualified Codes: R10.84 - Generalized abdominal pain YOLANDA HATFIELD MD Apr 05, 2018 08:14
[2018-04-05 08:19] LABS: PLATELET COUNT, AUTOMATED 283 K/uL (150-450)
[2018-04-05] MEDS ORDERED: NS(*) 0.9% 1000 ML BAG 1,000 ML IV ONE (09:00)
[2018-04-05] MEDS ORDERED: KETOROLAC 15 MG/ML VIAL IVP ONE (09:00)
[2018-04-05] MEDS ORDERED: ONDANSETRON 4 MG ODT TH SL ONE (09:45)
[2018-04-05] MEDS ORDERED: ONDA4TAB9 PO (09:46)
[2018-04-08] MEDS ORDERED: PANT40TA65 PO (09:15)
== END 2018-04-05 09:56 | disposition home or self-care (01) ==
LOC: ER 08:12
DX: R11.2 Nausea with vomiting, unspecified (principal); R10.84 Generalized abdominal pain; E80.7 Disorder of bilirubin metabolism, unspecified
CPT/HCPCS: 81001; 83690; 84703; 85025; 96361; 96374; 96375; 99284; J1885; J2405; J3490; J7030; S0119; 82040; 82247; 82310; 82374; 82435; 82565; 82947; 84075; 84132; 84155; 84295; 84450; 84460; 84520

== ENCOUNTER → 2018-04-08 | Outpatient (CLI) | payer MEDICAID ==
[2015-04-19 14:33] VITALS: BMI 29.9
== END ==
LOC: LAB 09:00
PROVIDERS: ATTEND Student in an Organized Health Care Education/Training Program
DX: R11.10 Vomiting, unspecified (principal); R53.83 Other fatigue
CPT/HCPCS: 36415; 82040; 82247; 82310; 82374; 82435; 82565; 82947; 84075; 84132; 84155; 84295; 84450; 84460; 84520; 87088

== ENCOUNTER → 2018-05-20 | Outpatient (REF) | payer MEDICAID ==
[2015-04-19 14:33] VITALS: BMI 29.9
[2018-05-20 16:41] LABS: PLATELET COUNT, AUTOMATED 272 K/uL (150-450)
== END ==
PROVIDERS: ATTEND Nurse Practitioner Family
DX: R07.9 Chest pain, unspecified (principal)
CPT/HCPCS: 82040; 82247; 82310; 82374; 82435; 82565; 82947; 84075; 84132; 84155; 84295; 84450; 84460; 84484; 84520; 85025

== ENCOUNTER → 2018-09-23 | Outpatient (CLI) | payer MEDICAID ==
[2015-04-19 14:33] VITALS: BMI 29.9
== END ==
LOC: LAB 11:13
PROVIDERS: ATTEND Student in an Organized Health Care Education/Training Program
DX: Z11.8 Encounter for screening for other infectious and parasitic diseases (principal); Z11.3 Encounter for screening for infections with a predominantly sexual mode of transmission; N64.3 Galactorrhea not associated with childbirth
CPT/HCPCS: 36415; 84146; 84443; 87491; 87591

== ENCOUNTER → 2018-11-02 | Outpatient (CLI) | payer MEDICAID ==
[2015-04-19 14:33] VITALS: BMI 29.9
[~2018-11-02] MED LIST changes: +DOXY-229 PO
== END ==
LOC: LAB 08:15
PROVIDERS: ATTEND Student in an Organized Health Care Education/Training Program
DX: N89.8 Other specified noninflammatory disorders of vagina (principal)
CPT/HCPCS: 87491; 87591